=== PATIENT | female | born 1995 | race African-American/Black ===

== ENCOUNTER 2017-01-06 19:02 | Emergency (ER) | payer MEDICAID ==
[~2017-01-06] VITALS: Ht 175.3 cm; Wt 81.2 kg
[~2017-01-06 19:02] MED LIST: FLEXERIL10 MG PO; MOBIC7.5 MG PO; MOTRIN IB200 MG PO; MOTRIN400 MG PO; NOMEDS XX
--- OUTSIDE RECORDS SUMMARY | 2017-01-06 19:13 | External Medical Summary Rpt | CCD ---
Author Author , SHARLA Organization SHARLA Address Unknown Phone Care Team Providers Care Polisher Eyeglass Frames Name Role Phone JESSICA LEONEL, ARNOLD Unavailable Unavailable LEONEL ARNOLD LEONEL, ARNOLD Unavailable Unavailable LEONEL TAY TER, TAY TER Unavailable Unavailable HUNT ALL, HUNT ALL Unavailable Unavailable [facility] Unavailable Unavailable [facility], [facility] MEHTA, MEHTA Unavailable Unavailable MEHTA LIZBETH, MEHTA Unavailable Unavailable LIZBETH MEHTA LIZBETH, MEHTA Unavailable Unavailable LIZBETH [facility] [place]available [place] Unavailable Unavailable [facility] LATOYA VAIBHAV, Unavailable Unavailable LATOYA VAIBHAV LATOYA, JORGE, Unavailable Unavailable LATOYA, JORGE [facility]ISION, Unavailable Unavailable [facility] LYNDSAY DIMAS PA-C Unavailable Unavailable LYNDSAY MERAZ PA-C [facility] Unavailable [place], [facility] [place] [facility] Unavailable [place] [facility] CHARLA ALBERTO MD, Unavailable Unavailable CHARLA RHOADES, YMFANNY Unavailable Unavailable EUG REBECCA CROFT, Unavailable Unavailable REBECCA CROFT [facility] Unavailable Unavailable [place], [facility] Unavailable Unavailable [place], [facility] Unavailable Un[facility] Unavailable [facility] Unavailable Un[facility] Unavailable Unavailable [facility], [facility] Unavailable Unavailable [facility] CALI LESTER, CALI LESTER Unavailable Unavailable CALI LESTER, CALI LESTER Unavailable Unavailable [facility], Unavailable Unavailable [facility] SHIVA [facility] Unavailable Unavailable [facility] Unavailable [facility]available [facility] Unavailable Unavailable [facility], [facility] Unavailable Unavailable SERVICES, [facility] FRANKIE ERAZO, Unavailable Unavailable FRANKIE ERAZO O'MELISSA JESSY, O'MELISSA Unavailable Unavailable JESSY PETTEY JAM, PETTEY Unavailable Unavailable JAM PICKLESIMER JR, Unavailable Unavailable PICKLESIMER JR SCIFRES ANG, SCIFRES Unavailable Unavailable ANG SCIFRES ANG, SCIFRES Unavailable Unavailable ANG SIMEON DON, Unavailable Unavailable SIMEON DON SIMEON DON, Unavailable Unavailable SIMEON DON SIMEON, DON R, Unavailable Unavailable SIMEON, DON R STONE, STONE Unavailable Unavailable STONE MARIYA, STONE MARIYA Unavailable Unavailable JAKE, JAKE Unavailable Unavailable JAKE, JAKE Unavailable Unavailable [facility] Unavailable Unavailable DEPT [facility], [facility] DEPT [facility] Unavailable Unavailable DEPT [facility], [facility] WEHRMAN III NGUYỄN, Unavailable Unavailable [facility] NGUYỄN SILVERIO FARHAD, SILVERIO Unavailable Unavailable FARHAD Purpose Continuity of Care Document - 04-29-2007 through 2016 Problems Code Diagnosis DOS Provider Status E668 OTHER 11-21-2016 JAKE OBESITY N760 ACUTE 11-21-2016 JAKE VAGINITIS R1031 RIGHT LOWER 11-21-2016 JAKE QUADRANT PAIN R350 FREQUENCY 11-06-2016 JAKE OF MICTURITION R351 NOCTURIA 11-06-2016 JAKE [id number] 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 RTN W/O ABNORMAL FIND Z113 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-06-2016 JAKE SCREEN INFECTIONS SEXL MODE TRANSMISSN Z118 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-06-2016 JAKE SCREEN OTHER INFECTIOUS & PARASITIC DZ V55198 MIGRAINE 06-20-2016 [facility] W/O AURA PHYSICIANS NOT INTRACT GROUP W/O STAT MIGRAIN Z7251 HIGH RISK 03-14-2016 [facility] HETEROSEXUA PHYSICIANS L BEHAVIOR GROUP H5213 MYOPIA 02-10-2016 SCIFRES ANG BILATERAL R5383 OTHER 01-19-2016 [facility] FATIGUE PHYSICIANS GROUP I01644 PAIN IN 12-28-2015 [place] [facility] R4740GH UNS INJURY 12-28-2015 [place] RT [facility]OWER [facility]ICAL [facility] INITIAL IMAGING ASS ENCOUNTER N390 URINARY 11-14-2015 [facility] TRACT PHYSICIANS INFECTION GROUP SITE NOT SPECIFIED Z308 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-14-2015 [facility] FOR OTHER PHYSICIANS CONTRACEPTI GROUP VE MANAGEMENT Z111 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-07-2015 [facility] SCREENING PHYSICIANS FOR GROUP RESPIRATORY TUBERCULOSI S R69467 ENCOUNTER 10-19-2015 [facility] INITIAL PHYSICIANS PRESCRIPTIO GROUP N INJECT CONTRACEPT R102 PELVIC AND 09-15-2015 [facility] PERINEAL PHYSICIANS PAIN GROUP B9689 OTH SPEC 09-01-2015 [facility] BACTERIAL PHYSICIANS AGNT CAUSE GROUP DZ CLASSIFIED ELSW N898 OTHER 09-01-2015 [facility] SPECIFIED PHYSICIANS NONINFLAMMA GROUP TORY DISORDERS VAGINA J020 STREPTOCOCC 08-16-2015 [facility] AL PHYSICIANS PHARYNGITIS GROUP R509 FEVER 08-16-2015 [facility] UNSPECIFIED PHYSICIANS GROUP A5400 GONOCOCCAL 04-21-2015 [facility] RY TRACT ILDA UNS A749 CHLAMYDIAL 04-21-2015 [facility] IN[facility]CTION DISTRICT UNSPECIFIED TH DEPT ILDA M15460 ENCOUNTER 12-23-2014 [facility] VENDOR ANALYST EXAM PHYSICIANS GENERAL RTN GROUP W/ABNORMAL FIND 4659 ACUTE URIS 12-09-2014 ARNOLD LEONEL OF UNSPECIFIED SITE 0340 STREPTOCOCC 11-29-2014 [facility] V1359 PERSONAL 10-18-2014 [place] [facility] MUSCULOSKEL ETAL D/O V549 UNSPECIFIED 10-18-2014 [facility] 5999 UNSPECIFIED 10-12-2014 ARNOLD LEONEL DISORDER OF URETHRA&URI NARY TRACT 4619 ACUTE 08-11-2014 ARNOLD LEONEL SINUSITIS, UNSPECIFIED 87442 PAIN IN 06-07-2014 [place] [facility] 3671 MYOPIA 12-15-2013 CALI LESTER V2501 GENERAL 11-02-2013 [facility] LIZBETH COUNSELING PRESCRIPTIO N ORAL CONTRACEPTS V2502 GENERAL 11-02-2013 [facility] LIZBETH CNSL INITIATION OTH CONTRACEPT MEASURES V2509 OT GENERAL 11-02-2013 [facility] LIZBETH CNSL&ADVICE CONTRACEPT MANAGEMENT V692 PROBLEMS 10-20-2013 COMBINED RELATED TO PHYSICIANS HIGH-RISK LA SEXUAL BEHAVIOR V7231 ROUTINE 10-20-2013 MEHT[facility] LIZBETH GYNECOLOGIC AL EXAMINATION 4660 ACUTE 08-18-2013 ARNOLD LEONEL BRONCHITIS V720 EXAMINATION 12-05-2012 CALI LESTER OF EYES AND VISION V741 SCREENING 11-25-2012 [facility] EXAMINATION HIGH FOR SCHOOL HEAL PULMONARY TUBERCULOSI S 37208 PATELLAR 10-13-2012 [facility] V571 OTHER 10-13-2012 [facility] THERAPY INC 462 ACUTE 09-30-2012 JESSICA CASTANEDA PHARYNGITIS 86768 CLOSED 09-24-2012 [place] FRACTURE MEDICAL UNSPECIFIED IMAGING ASS PART LOWER END FEMUR 92608 POST-TRAUMA 07-01-2012 [facility] UNSPECIFIED 850.0 850.0 07-01-2012 [facility] CONCUSSION [facility] W/O [facility] E849.4 E849.4 07-01-2012 [facility] ACCID IN [facility] AREA E885.9 E885.9 FALL 07-01-2012 Rosalio FROM [facility] SLIPPING, Hospital TRIPPING, OR STUMBLING NEC 53644 VARIANTS 05-26-2012 JESSICA CASTANEDA MIGRAINE NEC INTRACT MIGRAINE W/[place] [address] CLOSED 03-31-2012 [facility] [place] [facility] UNSPECIFIED PART OF FEMUR 51430 EFFUSION OF 02-21-2012 [place] [facility] 7823 EDEMA 02-21-2012 [facility] 80432 ASTHMA 01-07-2012 JESSICA CASTANEDA UNSPECIFIED WITH STATUS ASTHMATICUS 38067 ENTHESOPATH 01-01-2012 JESSICA CASTANEDA Y OF UNSPECIFIED SITE 53203 SCOLIOSIS , 10-08-2011 [place] [facility] V700 ROUTINE 10-08-2011 JESSICA CASTANEDA GENERAL MEDICAL EXAM@HEALTH CARE FACL 2662 OTHER 08-21-2011 [facility] S 74138 UNSPECIFIED 08-21-2011 [facility] VULVOVAGINI TIS V2541 SURVEILLANC 08-21-2011 [facility] E PREV HEALTH PRESCRIBED CENTER CONTRACEPT PILL V016 CONTACT 07-31-2011 [facility] WITH OR HEALTH EXPOSURE TO CENTER VENEREAL DISEASES 58686 ESOPHAGEAL 07-26-2011 JESSICA CASTANEDA REFLUX 6262 EXCESSIVE 04-10-2011 [facility] MENSTRUATIO N 8488 OTHER 12-15-2010 SIMEON SPECIFIED DON SITES OF SPRAINS AND STRAINS V2689 OTHER 11-24-2010 [facility] SPECIFIED HEALTH PROCREATIVE CENTER MANAGEMENT V069 NEED PROPH 10-12-2010 [facility] VACCINATION HEALTH W/UNSPEC CENTER COMB VACCINE 7242 LUMBAGO 09-13-2010 [facility] 6253 DYSMENORRHE 08-15-2010 [facility] 45990 REGULAR 08-11-2010 JOLLY ASTIGMATISM VISION V202 ROUTINE 08-08-2010 CA[facility] OR DON CHILD HEALTH CHECK 7245 UNSPECIFIED 07-10-2010 [facility]HE [employer] 8472 LUMBAR 07-10-2010 [facility] SPRAIN AND DON STRAIN 7295 PAIN IN 01-30-2010 [facility] SOFT MIDDLE TISSUES OF SCHOOL LIMB 12126 OTHER 12-28-2009 [facility] DISORDER OF DON COCCYX 8471 THORACIC 07-07-2009 [facility] 4644 CROUP 05-30-2009 INDIRA SIMEON R 1330 SCABIES 12-13-2008 INDIRA SIMEON R 5589 OTH&UNSPEC 12-13-2008 [facility] NONINFECTIO INDIRA R US GASTROENTER ITIS&COLITI S 67758 UNSPECIFIED 03-09-2008 [facility] ARTHROPATHY INC , LOWER LEG 09838 CHEST PAIN 12-04-2007 [place] [facility] 9233 CONTUSION 09-15-2007 [facility] OF FINGER INDIRA [place]ahan Allergies, Adverse Reactions, Alerts Type Allergy to substance Adverse Reaction to Substance Substance Reaction Severity NO KNOWN ALLERGIES Unknown Unknown Medications Na ND Rx Da Fi Fi Am Da Di Ph RX Ph St me C No te ll ll ou ys ag ar # ys at rm s nt no ma ic us Or Da si cy ia de te s n re d ES 68 08 10 30 30 00 HO Ac CI 00 -3 -0 .0 00 ME ti TA 10 1- 6- 00 06 TO ve LO 19 20 20 09 WN OR 60 17 17 34 AM 3 66 PH AR 10 MA CY MG OF TA BL CY ET NT HI AN A BU 00 03 04 30 5 00 HO Ac TA 59 -2 -2 .0 00 ME ti LB 13 9- 8- 00 04 TO ve -A 36 20 20 02 WN CE 90 17 17 20 TA 5 89 PH WA AR N- MA CA CY FF OF 50 -3 CY 25 NT -4 HI 0 AN A ON 00 03 04 30 10 00 HO Ac DA 37 -2 -2 .0 00 ME ti NS 87 9- 8- 00 06 TO ve ET 73 20 20 08 WN RO 49 17 17 41 N 3 72 PH OD AR T MA 8 CY MG OF TA BL CY ET NT HI AN A ME 00 09 09 0 [address] Ac TH 78 -2 -[address] 22 EP ti YL 15 3- 3- 00 SI 89 HE ve OR 02 20 20 DE NS ED 20 11 11 NI 7 PH DO SO AR N LO MA R NE CY 4 OF MG CY DO NT SE HI PK AN A IB 53 09 09 1 [address] Ac UP 74 -2 -[address] 22 EP ti RO 60 3- 3- 00 SI 90 HE ve FE 46 20 20 DE NS N 40 11 11 40 5 PH DO 0 AR N MG MA R CY TA BL OF ET CY NT HI AN A CY 00 06 06 0 15 5 EA 23 WE Ac CL 37 -2 -[address] 04 HR ti OB 80 2- 2- 00 SI 90 MA ve EN 75 20 20 DE N ZA 11 11 11 II OR 0 PH I IN AR WI E MA LL 10 CY IA M MG OF E TA CY BL NT ET HI AN A OR 00 04 04 [address] Ac ED 60 -1 -[address] 17 EP ti NI 35 8- 8- 00 SI 02 HE ve SO 33 20 20 DE NS NE 71 11 11 5 5 PH DO AR N MG MA R CY TA BL OF ET CY NT HI AN A AZ 00 03 03 0 6. [address] Ac IT 09 -0 -[address] 68 EP ti HR 37 8- 8- 0 SI 67 HE ve OM 14 20 20 DE NS YC 61 10 10 IN 8 PH DO AR N 25 MA R 0 CY MG OF TA BL CY ET NT HI AN A ME 00 03 03 [address] Ac TH 78 -0 -[address] 68 EP ti YL 15 8- 8- 00 SI 68 HE ve OR 02 20 20 DE NS ED 20 10 10 NI 7 PH DO SO AR N LO MA R NE CY 4 OF MG CY DO NT SE HI PK AN A 60 03 03 0 [address] Ac 25 -0 -[address] 68 EP ti 80 8- 8- 00 SI 69 HE ve 23 20 20 0 DE NS 91 10 10 6 PH DO AR N MA R CY OF CY NT HI AN A 00 09 10 00 [address] Ac 40 -2 -[address] 35 EP ti 62 1- 8- 00 SI 80 HE ve 04 20 20 DE NS 11 09 09 0 PH DO AR N MA R CY OF CY NT HI AN A PE 45 09 10 [address] Ac RM 80 -2 -[address] 35 EP ti ET 20 1- 8- 00 SI 79 HE ve HR 26 20 20 DE NS IN 93 09 09 7 PH DO 5% AR N MA R CR CY EA M OF CY NT HI AN A 00 05 06 00 2. 2 EA 98 No Ac 09 -1 -[address] 05 t ti 39 9- 5- 0 SI 41 Av ve 10 20 20 DE ai 72 08 08 la 9 PH bl AR e MA CY OF CY NT HI AN A 60 02 03 00 18 5 EA 96 No Ac 25 -0 -[address] 66 t ti 80 5- 6- 00 SI 64 Av ve 23 20 20 0 DE ai 91 08 08 la 6 PH bl AR e MA CY OF CY NT HI AN A AM 00 02 03 00 30 10 EA 96 No Ac OX 78 -0 -[address] 66 t ti IC 12 5- 6- 00 SI 63 Av ve IL 02 20 20 DE ai LI 00 08 08 la N [address] bl 25 AR e 0 MA MG CY CA OF PS CY UL NT E HI AN A Immunization Name Date Rout CVX Reac Dose Comm Prov Is Faci e tion ent ider Refu lity Give sed n MCV4 07-2 114 Meni LAURENCE No LAURENCE 1-20 may SERENE SERENE IGLESIAS 11 occu CO CO CWY s HEAL HEAL CONJ vacc TH TH ine CENT CENT VACC admi ER ER nist GRPS ered ; ACYW form -135 ulat IM ion USE not spec ifie d. MCV4 07-2 136 Meni LAURENCE No LAURENCE 1-20 may SERENE SERENE IGLESIAS 11 occu CO CO CWY s HEAL HEAL CONJ vacc TH TH ine CENT CENT VACC admi ER ER nist GRPS ered ; ACYW form -135 ulat IM ion USE not spec ifie d. Vital Signs 07-01-2012 19:45 Name Value Interpretat Reference Comment ion Range Body 98.5 [degF] Temperature BP 69 mm[Hg] Diastolic BP Systolic 131 mm[Hg] Heart 87 /min Rate/Pulse O2% 100 % Respiratory 18 /min Rate 07-01-2012 18:48 Name Value Interpretat Reference Comment ion Range BP 71 mm[Hg] Diastolic BP Systolic 124 mm[Hg] Heart 83 /min Rate/Pulse O2% 100 % Respiratory 18 /min Rate Results Labs Lab Lab Date Result Refere Interp Status Commen Order Detail nces retati t Range on Herpes simplex virus identified in Unspecified specimen by Organism specific culture (09-27-2016 16:00) Herpes 09-27- NO complet simplex 017 HERPES ed virus 16:00 VIRUS identif ISOLATE ied in D Unspeci fied specime n by Shell vial culture Herpes simplex virus identified in Unspecified specimen by Organism specific culture (09-27-2016 16:00) COLLECT RILEY complet OR 017 ed 16:00 ETHNICI BIRACIA complet TY 017 L/NON-H ed 16:00 ISPANIC SPECIME SWAB complet N 017 ed SOURCE 16:00 GESTATI N/A complet ON 017 ed 16:00 DATE OF UNKNOWN complet 017 ed SYMPTOM 16:00 S CHART N/A complet NUMBER 017 ed 16:00 SYMPTOM LESIONS complet S 017 ed 16:00 Herpes Pending complet simplex 017 ed virus 16:00 identif ied in Unspeci fied specime n by Shell vial culture CHLAMYDIA AND GONORRHEA TESTING (08-14-2016 13:00) Chlamyd 08-14-2 NEGATIV complet ia 017 E ed trachom 13:00 atis rRNA [Presen ce] in Unspeci fied specime n by Probe & target amplifi cation method Neisser 23-2 NEGATIV complet ia 017 E ed gonorrh 13:00 oeae rRNA [Presen ce] in Unspeci fied specime n by Probe & target amplifi cation method CHLAMYDIA AND GONORRHEA TESTING (08-14-2016 13:00) COLLECT 08-14- RILEY complet OR 017 ed 13:00 ETHNICI --2 UNKNOWN complet TY 017 ed 13:00 KIT 08-14-2 1131-2 complet EXPIRAT 017 017 ed ION 13:00 DATE SYMPTOM 08-14- NO complet S 017 ed 13:00 REASON 08-14-2 REVISIT complet FOR 017 /ANNUAL ed REQUEST 13:00 FAMILY PLANNIN G VISIT SPECIME 08-14- URINE complet N 017 ed SOURCE 13:00 PREGNAN --2 NO complet T 017 ed 13:00 CHART N/A complet NUMBER 017 ed 13:00 Chlamyd 08-14-2 Pending complet ia 017 ed trachom 13:00 atis rRNA [Presen ce] in Unspeci fied specime n by Probe & target amplifi cation method Neisser 08-14-2 Pending complet ia 017 ed gonorrh 13:00 oeae rRNA [Presen ce] in Unspeci fied specime n by Probe & target amplifi cation method CHLAMYDIA AND GONORRHEA TESTING (08-21-2011 14:00) Chlamyd NEGATIV complet ia 012 E ed trachom 14:00 atis rRNA [Presen ce] in Unspeci fied specime n by Probe & target amplifi cation method Neisser 08-20-2 NEGATIV complet ia 012 E ed gonorrh 14:00 oeae rRNA [Presen ce] in Unspeci fied specime n by Probe & target amplifi cation method CHLAMYDIA AND GONORRHEA TESTING (08-21-2011 14:00) COLLECT NA complet OR 012 ed 14:00 ETHNICI BLACK, complet TY 012 NON-HIS ed 14:00 PANIC KIT 20 complet EXPIRAT 012 12 ed ION 14:00 DATE SYMPTOM NO complet S 012 ed 14:00 REASON VOLUNTE complet FOR 012 ER/MEDI ed REQUEST 14:00 GERMAINE PROBLEM SPECIME FEMALE complet N 012 ENDOCER ed SOURCE 14:00 VICAL PREGNAN NO complet T 012 ed 14:00 CHART NA complet NUMBER 012 ed 14:00 Chlamyd Pending complet ia 012 ed trachom 14:00 atis rRNA [Presen ce] in Unspeci fied specime n by Probe & target amplifi cation method Neisser Pending complet ia 012 ed gonorrh 14:00 oeae rRNA [Presen ce] in Unspeci fied specime n by Probe & target amplifi cation method Procedures Procedure DOS Code Location Performer Comment SMR PRIM 59069 JAKE JAKE SRC WET 7 [facility] NFCT AGT SMR PRIM 31289 JAKE JAKE [facility] WET 7 [facility] NFCT AGT IADNA 61488 [facility] ER JR TRACHOMAT IS AMPLIFIED PROBE TQ URINALYSI 39842 JAKE JAKE S 7 MICROSCOP IC ONLY IADNA 63995 [facility] NEISSERIA [facility] ER JR GONORRHOE AE AMPLIFIED PROBE TQ OPHTH 06024 SCIFRES SCIFRES MEDICAL 6 ANG ANG XM&EVAL COMPRHNSV ESTAB PT 1/> SCRATCH V2760 SCIFRES SCIFRES RESISTANT 6 ANG ANG COATING PER LENS LENS V2784 SCIFRES SCIFRES POLYCARBO 6 ANG ANG MARYAM OR EQUAL ANY INDEX PER LENS FRAMES V2020 SCIFRES SCIFRES PURCHASES 6 ANG ANG 1 VISN V2103 SCIFRES SCIFRES PLANO 6 ANG ANG TO+/-4.00 D SPHER 0.12-2.00 D CYL EA FITTING 12196 SCIFRES MovetisFRES SPECTACLE 6 ANG ANG S XCPT APHAKIA MONOFOCAL IRON 27708 [facility] BINDING 6 [facility] CAPACITY INC INC BLOOD 63457 [facility] ZHUON COUNT 6 [facility] COMPLETE INC INC AUTO&AUTO DIFRNTL WBC CYANOCOBA 18887 [facility] SANTAM[facility] RIZWANA 6 [facility] VITAMIN INC INC B-[address] [place] [address] [facility] FERRITIN 6 [facility] [place] [address] [facility]ANTAM[facility] FOLIC 6 [facility] [place] [address] [facility]ANTAM[facility] IRON 6 [facility] INC INC RADIOLOGI 20017 [place] [facility] 6 MEDICAL EXAMINATI IMAGING ON KNEE 3 ASS VIEWS CULTURE 28863 [facility] S[facility]AM[facility] BACTERIAL 6 [facility] INC INC QUANTTATI VE COLONY COUNT URINE REMOVAL 79400 [facility] NON-BIODE 6 PHYSICIAN LIZBETH GRADABLE S GROUP DRUG DELIVERY IMPLANT URNLS DIP 90543 [facility] 6 PHYSICIAN LIZBETH STICK/TAB S GROUP LET RGNT NON-AUTO W/O MICRSCP SKIN TEST 98769 [facility] FRYMAN 6 PHYSICIAN EUG TUBERCULO S GROUP SIS INTRADERM AL ETONOGEST J7307 [facility] REL 6 PHYSICIAN LIZBETH CNTRACPT S GROUP IMPL SYS INCL IMPL & SPL INSJ 63274 [facility] NON-BIODE 6 PHYSICIAN LIZBETH GRADABLE S GROUP DRUG DELIVERY IMPLANT URINE 03554 [facility] 6 PHYSICIAN LIZBETH TEST S GROUP VISUAL COLOR CMPRSN METHS SMR PRIM 85504 [facility] SANTAMARIA SRC WET 6 [facility] INC NFCT AGT IAADIADOO 37265 [facility] LYNDSAY 6 PHYSICIAN STONE STREPTOCO S GROUP PA-C MARIYA CCUS GROUP A IAADIADOO 87171 [facility] LYNDSAY 6 PHYSICIAN STONE INFLUENZA S GROUP PA-C MARIYA IADNA 91838 [facility] NEISSERIA 6 [facility] GONORRHOE AE AMPLIFIED PROBE TQ IADNA 65972 [facility] CHLAMYDIA 6 [facility] TRACHOMAT IS AMPLIFIED PROBE TQ IADNA 56918 [facility] TH DEPT TH DEPT TRACHOMAT ILDA ILDA IS AMPLIFIED PROBE TQ CONTRACEP A4267 [facility] TIVE [facility] SUPPLY TH DEPT HLTH DEPT CONDOM ILDA ILDA MALE EACH IADNA 18952 [facility] DEPT TH DEPT GONORRHOE ILDA ILDA AE AMPLIFIED PROBE TQ IADNA 30314 [facility] SANTAMARIA CHLAMYDIA 5 [facility] INC INC TRACHOMAT IS AMPLIFIED PROBE TQ URINE 19934 [facility] 5 PHYSICIAN LIZBETH TEST S GROUP VISUAL COLOR CMPRSN METHS IADNA 89250 [facility] SANTAMARIA NEISSERIA 5 [facility] INC INC GONORRHOE AE AMPLIFIED PROBE TQ OPHTH 59059 [facility] 4 XM&EVAL COMPRHNSV ESTAB PT 1/> FITTING 61945 [facility] SPECTACLE 4 S XCPT APHAKIA MONOFOCAL LENS V2784 KARELY BATISTA POLYCARBO 4 MARYAM OR EQUAL ANY INDEX PER LENS 1 VISN V2103 KARELY CALI LESTER PLANO 4 TO+/-4.00 D SPHER 0.12-2.00 D CYL EA SCRATCH V2760 KARELY BATISTA RESISTANT 4 COATING PER LENS FRAMES V2020 KARELY BATIST[facility] PURCHASES 4 ANTIBODY 52533 COMBINED COMBINED CHLAMYDIA 4 PHYSICIAN PHYSICIAN S LA S LA CUL BACT 12175 COMBINED COMBINED XCPT 4 PHYSICIAN PHYSICIAN URINE S LA S LA BLOOD/STO OL AEROBIC ISOL SPHERE V2100 KARELY BATISTA SINGLE 3 VISION PLANO +/- 4.00 PER LENS OPHTH 94817 KARELY BATIST[facility] MEDICAL 3 XM&EVAL COMPRHNSV ESTAB PT 1/> 1 VISN V2103 KARELY BATISTA PLANO 3 TO+/-4.00 D SPHER 0.12-2.00 D CYL EA FRAMES V2020 KARELY BATISTA PURCHASES 3 DETERMINA 27604 KARELY BATISTA TION 3 REFRACTIV E STATE THERAPEUT 55878 [facility] SANTAMARIA IC PX 1/> 3 [facility] EACH 15 MIN EXERCISES THERAPEUT 84700 ROSALIO SANTAMARIA IC PX 1/> 3 [facility] INC EACH 15 MIN EXERCISES PHYSICAL 16619 ROSALIO SANTAMARIA THERAPY 3 [facility] [place] [address] [place] JT LOWER 3 MEDICAL VAIBHAV EXTREM IMAGING W/O ASS CONTRAST MATRL RADIOLOGI 67921 [place]AL SILVERIO C 3 [place] FARHAD EXAMINATI ORTHOPAED ON KNEE ICS PLC 1/2 VIEWS THERAPEUT 34667 ROSALIO SANTAMARIA IC PX 1/> 3 [facility] INC EACH 15 MIN EXERCISES THERAPEUT 38369 ROSALIO SANTAMARIA IC PX 1/> 3 [facility] INC EACH 15 MIN EXERCISES APPLICATI 16799 ROSALIO SANTAMARIA ON 3 [facility] INC 1/> AREAS HOT/COLD PACKS APPLICATI 17910 ROSALIO SANTAMARIA ON 3 [facility] INC 1/> AREAS HOT/COLD PACKS THERAPEUT 56789 ROSALIO SANTAMARIA IC PX 1/> 3 [facility] INC EACH 15 MIN EXERCISES PHYSICAL 57837 ROSALIO SANTAMARIA THERAPY 3 [facility] EVALUATIO INC INC N RADIOLOGI 85504 [facility] SILVERIO [facility] [place] EXAMINATI ORTHOPAED ON KNEE IC 1/2 [place] [address] ROSALIO SANTAMARIA JT LOWER 2 [facility] EXTREM INC INC W/O CONTRAST MATRL RADIOLOGI 12197 [facility] [place] [place] C 2 MEDICAL VAIBHAV EXAMINATI IMAGING ON KNEE ASS 1/2 VIEWS RADEX 38888 ROSALIO SANTAMARIA SPINE 2 [facility] SCOLIOS INC INC STUDY W/SUPINE & ERECT STUDY IADNA 23848 ROSALIO SANTAMARIA NEISSERIA 2 [facility] GONORRHOE AE AMPLIFIED PROBE TQ IADNA 45411 ROSALIO SANTAMARIA CHLAMYDIA 2 [facility] TRACHOMAT IS AMPLIFIED PROBE TQ URINE 89911 ROSALIO SANTAMARIA 1 [facility] CENTER VISUAL COLOR CMPRSN METHS CONTRACEP S4993 ROSALIO SANTAMARIA TIVE 1 [facility] [employer] [employer] [place] [facility] CENTER CONTROL MCV4 44664 ROSALIO SANTAMARIA MENACWY 1 [facility] CONJ VACC CENTER CENTER GRPS [id number] IM USE IM ADM 98885 ROSALIO SANTAMARIA PRQ ID 1 [facility] [facility]IM [facility] CENTER NJXS 1 VACCINE RADEX 21029 ROSALIO SANTAMARIA SPINE 1 [facility] INC AL MINIMUM 4 VIEWS CONTRACEP [id number] ROSALIO SANTAMARIA TIVE 1 [facility] HEALTH PILLS FOR CENTER CENTER CONTROL URINE 12678 ROSALIO SANTAMARIA 1 [facility] HEALTH TEST CENTER CENTER VISUAL COLOR CMPRSN METHS CONTRACEP A4267 ROSALIO SANTAMARIA TIVE 1 [facility] HEALTH SUPPLY CENTER CENTER CONDOM MALE EACH SPHERE V2100 JOLLY HAHN SINGLE 1 VISION ANG VISION PLANO +/- 4.00 PER LENS FITTING 03235 JOLLY HAHN SPECTACLE 1 VISION ANG S XCPT APHAKIA MONOFOCAL FRAMES V2020 JOLLY HAHN PURCHASES 1 VISION ANG OPHTH 78786 JOLLY HAHN MEDICAL 1 VISION ANG XM&EVAL COMPRE NEW PT 1/> VST URNLS DIP 69003 CAILIN SIMEON 1 DON DON STICK/TAB LET RGNT NON-AUTO W/O MICRSCP URNLS DIP 43901 [facility] ZHUON 0 [facility] STICK/TAB INC INC LET REAGENT AUTO MICROSCOP Y URINE 40127 ROSAL[facility] SANTAMARIA 0 [facility] TEST INC INC VISUAL COLOR CMPRSN METHS RADIOLOGI 66310 [place] Antonio KLEIN 8 MEDICAL JORGE EXAMINATI IMAGING ON KNEE ASSOCIATE 1/2 VIEWS S RADIOLOGI 87844 ROSALIO SANTAMARIA C 8 [facility] EXAMINATI INC INC ON KNEE 3 VIEWS RADIOLOGI 91417 [place] Antonio ERAZO EXAM 8 MEDICAL FRANKIE P CHEST 2 IMAGING VIEWS ASSOCIATE FRONTAL&L S ATERAL IM ADM 70553 [facility] ROSALIO PRQ ID 8 [facility] HEALTH SUBQ/IM CENTRAL CENTER NJXS 1 BANK ACCT VACCINE RADEX 40911 CAILIN SIMEON FINGR 8 DON R DON R MINIMUM 2 VIEWS Encounters Encounter Start End Date Code Location Performer Type Date OFFICE 69979 JAKE JAKE OUTPATIEN 7 7 T VISIT 15 MINUTES OFFICE 52875 JAKE JAKE OUTPATIEN 7 7 T NEW 30 MINUTES OFFICE 67836 [facility] STONE OUTPATIEN 7 7 PHYSICIAN T VISIT S GROUP 25 MINUTES OFFICE 67437 [facility] MEHTA OUTPATIEN 6 6 PHYSICIAN T VISIT S GROUP 15 MINUTES HOSPITAL ROSALIO - 6 6 [facility] OUTPATI[facility] INC T OFFICE 39215 [facility] STONE MARIYA OUTPATIEN 6 6 PHYSICIAN T VISIT 5 S GROUP MINUTES OFFICE 22388 [facility] OUTPATIEN 6 6 PHYSICIAN T VISIT S GROUP 15 MINUTES HOSPITAL ROSALIO - 6 6 [facility] INC T OFFICE 51690 [facility] MEHTA OUTPATIEN 6 6 PHYSICIAN LIZBETH T VISIT S GROUP 15 MINUTES OFFICE 92089 [facility] UMANA OUTPATIEN 6 6 PHYSICIAN STONE T VISIT S GROUP PATri MERAZ 15 MINUTES [facility] ROSALIO - 6 6 [facility] OUTPATIEN INC T OFFICE 94697 [facility] UMANA OUTPATIEN 6 6 PHYSICIAN STONE T NEW 30 S GROUP PATri MERAZ MINUTES OFFICE 66835 [facility] DE[facility] DEPT 10 [facility] ROSALIO - 5 5 [facility] OUTPATIEN INC T PERIODIC 87097 [facility] TYSON PREVENTIV 5 5 PHYSICIAN LIZBETH E MED EST S GROUP PATIENT 18-39 YRS OFFICE 45294 JESSICA LOPEZ OUTPATIEN 5 5 LEONEL LEONEL T VISIT 15 MINUTES OFFICE 57480 ROSALIO RODRIGUEZ OUTPATIEN [address] MINUTES OFFICE 10711 SOP[facility]IA SHANNON OUTPATIEN 5 5 MEDICAL COLE T VISIT SERV 15 FOUNDATIO MINUTES N OFFICE 36051 JESSICA LOPEZ OUTPATIEN 5 5 LEONEL LEONEL T VISIT 15 MINUTES OFFICE 23994 JESSICA LOPEZ OUTPATIEN 5 5 LEONEL LEONEL T VISIT 15 MINUTES OFFICE 64144 [facility] SHANNON OUTPATIEN 5 5 MEDICAL COLE T VISIT SERV 15 FOUNDATIO MINUTES N OFFICE 80145 JESSICA BOND 4 4 LEONEL LEONEL T VISIT 15 MINUTES OFFICE 70206 [facility] MEHTA OUTPATIEN 4 4 LIZBETH LIZBETH T VISIT 15 MINUTES INITIAL 22641 MEHTA TYSON PREVENTIV 4 4 LIZBETH LIZBETH E MEDICINE NEW PT AGE 12-17 YR OFFICE 13933 JESSICA LOPEZ OUTESTELLE 4 4 LEONEL LEONEL T VISIT 15 MINUTES OFFICE 77291 ROSALIO SANTAMARIA OUTESTELLE 3 3 [facility] MIN[facility]ES [facility] OFFICE 33861 JESSICA BOND 3 3 LEONEL LEONEL T VISIT 15 MINUTES HOSPITAL [facility] - 3 3 [facility] OUTPATI[facility] INC T OFFICE 35613 JESSICA BOND 3 3 LEONEL LEONEL T VISIT 15 MINUTES HOSPITAL [facility]AL[facility] - 3 3 [facility] OUTPATI[facility] INC T OFFICE 83559 DIPTI SAWYER OUTPATIEN 3 3 [place] [facility] T VISIT ORTHOPAED [facility] MINUTES Emergency RADHA ALBERTO MD (ER) 3 18:15 3 19:46 [facility] OFFICE 94329 JESSICA BOND 3 3 LEONEL LEONEL T VISIT 15 MINUTES EMERGENCY 56204 GHAZALA ALBERTO 3 3 EMERGENCY [facility] SERVICES T VISIT HIGH/URGE NT SEVERITY OFFICE 63861 JESSICA BOND 3 3 LEONEL LEONEL T VISIT 15 MINUTES OFFICE 69396 JESSICA BOND 3 3 LEONEL LEONEL T VISIT 15 MINUTES OFFICE 84562 DIPTI SAWYER OUTPATIEN 3 3 [place] T VISIT ORTHOPAED [facility] MINUTES OFFICE 30418 JESSICA LOPEZ OUTPATIEN 3 3 LEONEL LEONEL T VISIT 15 MINUTES HOSPITAL [facility] - 3 3 [facility] T OFFICE 16143 [facility] OUTPATI[facility] 3 3 ALCIRA FARHAD T VISIT ORTHOPAED 15 IC MINUTES OFFICE 54718 [facility] [place] 2 2 [place] VISIT ORTHOPAED 15 [facility] MINUTES [facility]OSPITAL [facility] - 2 2 [facility] T OFFICE 25719 [facility] CONSULTAT 2 2 [place] I[place] ORTHOPAED NEW/ESTAB [facility] PATIENT 40 MIN OFFICE 73592 [facility] PETTEY OUTPATIEN 2 2 PHYSICIAN JAM T VISIT S GROUP 10 MINUTES OFFICE 29181 [facility] PETTEY OUTPATIEN 2 2 PHYSICIAN JAM T NEW 20 S GROUP MINUTES HOSPITAL ROSALIO - 2 2 [facility] OUTPATIEN INC T OFFICE 01037 JESSICA LOPEZ OUTPATIEN 2 2 LEONEL LEONEL T VISIT 15 MINUTES OFFICE 34302 JESSICA LOPEZ OUTPATIEN 2 2 LEONEL LEONEL T VISIT 15 MINUTES OFFICE 13637 JESSICA LOPEZ OUTPATIEN 2 2 LEONEL LEONEL T VISIT 15 MINUTES HOSPITAL [facility]AL[facility] - 2 2 [facility] OUTPATIEN INC T OFFICE 64024 JESSICA LOPEZ OUTPATIEN 2 2 LEONEL LEONEL T VISIT 40 MINUTES OFFICE 77544 ROSALIO SANTAMARIA OUTPATIEN 2 2 [facility] HEALTH T VISIT CENTER CENTER 10 MINUTES OFFICE 33199 JESSICA LOPEZ OUTPATIEN 2 2 LEONEL LEONEL T NEW 30 MINUTES OFFICE 18512 ROSALIO SANTAMARIA OUTPATIEN 1 1 [facility] HEALTH T VISIT CENTER CENTER 25 MINUTES OFFICE 01169 CAILIN SIMEON OUTPATIEN 1 1 DON DON T VISIT 15 MINUTES OFFICE 68921 ROSALIO SANTAMARIA OUTPATIEN 1 1 [facility] HEALTH T VISIT CENTER CENTER 10 MINUTES EMERGENCY 86095 GHAZALA MAYORGA 1 1 EMERGENCY [facility] DEPARTMEN SERVICES T VISIT HIGH/URGE NT SEVERITY EMERGENCY 02925 ROSALIO 1 1 [facility] DEPARTMEN INC T VISIT LOW/MODER SEVERITY HOSPITAL [facility] - 1 1 [facility] OUTPATIEN INC T OFFICE 90307 ROSALIO SANTAMARIA OUTPATIEN 1 1 [facility] HEALTH T VISIT CENTER CENTER 25 MINUTES OFFICE 79203 ROSALIO SANTAMARIA OUTPATIEN 1 1 [facility] HE[facility] T VISIT CENTER CENTER 25 MINUTES PERIODIC 66809 CAILIN SIMEON PREVENTIV 1 1 DON DON E MED EST PATIENT OFFICE 30326 CAILIN SIMEON OUTPATIEN 1 1 DON DON T VISIT 15 MINUTES OFFICE 56255 ROSALIO SANTAMARIA OUTPATIEN 1 1 [facility] 10 MINUTES OFFICE 29370 ROSALIO SANTAMARIA OUTPATIEN 0 0 [facility] 10 MINUTES OFFICE 11640 CAILIN SIMEON OUTPATIEN 0 0 DON DON T VISIT 15 MINUTES PERIODIC 50525 CAILIN SIMEON, PREVENTIV 0 0 DON R DON R E MED EST PATIENT 18YRS EMERGENCY 56670 GHAZALA CROFT, 0 0 EMERGENCY [facility] DEPARTMEN SERVICES T VISIT HIGH/URGE ASSOCIATE NT S SEVERITY HOSPITAL [facility] - 0 0 [facility] OUTPATIEN INC T EMERGENCY 77724 [facility] 0 0 [facility] DEPARTMEN INC T VISIT LOW/MODER SEVERITY OFFICE 17482 CAILIN SIMEON OUTPATILUIS 0 0 DON R DON R T VISIT 15 MINUTES OFFICE 18528 CAILIN SIMEON OUTPATIEN 0 0 DON R DON R T VISIT 15 MINUTES OFFICE 75018 CAILIN SIMEON OUTPATIEN 9 9 DON R DON R T VISIT 15 MINUTES PERIODIC 16072 CAILIN SIMEON PREVENTIV 9 9 DON R DON R E MED EST PATIENT 5-11YRS EMERGENCY 74166 [facility] 8 8 [facility] DEPARTMEN INC T VISIT LOW/MODER SEVERITY [facility]OSPITAL [facility] - 8 8 [facility] T OFFICE 89309 [facility] OUTPATIEN 8 8 [facility] T VISIT [facility] 10 BANK ACCT MINUTES OFFICE 78782 CAILIN SIMEON OUTPATIEN 8 8 DON R DON R T VISIT 15 MINUTES OFFICE 27608 [facility] OUTPATIEN 8 8 [facility] CO HE[facility] T NEW 10 CENTRAL CENTER MINUTES BANK ACCT PERIODIC 92934 CAILIN SIMEON PREVENTIV 8 8 DON R DON R E MED EST PATIENT 5-11YRS OFFICE 50516 CAILIN SIMEON OUTPATIEN 8 8 DON R DON R T VISIT 15 MINUTES
--- OUTSIDE RECORDS SUMMARY | 2017-01-06 19:13 | External Medical Summary Rpt | CCD ---
Author Author , SHARLA Organization SHARLA Address Unknown Phone Care Team Providers Care Advertising Internship Name Role Phone JESSICA LEONEL, ARNOLD Unavailable Unavailable LEONEL ARNOLD LEONEL, ARNOLD Unavailable Unavailable LEONEL TAY TER, TAY TER Unavailable Unavailable HUNT ALL, HUNT ALL Unavailable Unavailable [facility] Unavailable Unavailable [facility], [facility] MEHTA, MEHTA Unavailable Unavailable MEHTA LIZBETH, MEHTA Unavailable Unavailable LIZBETH MEHTA LIZBETH, MEHTA Unavailable Unavailable LIZBETH [facility] Unavailable Unavailable [facility] LATOYA VAIBHAV, Unavailable Unavailable LATOYA VAIBHAV LATOYA, JORGE, Unavailable Unavailable LATOYA, JORGE [facility], Unavailable Unavailable [facility] LYNDSAY DIMAS PA-C Unavailable Unavailable LYNDSAY MERAZ PA-C [facility] [place]available [place], [facility] [place] [facility] [place] [facility] CHARLA ALBERTO MD, Unavailable Unavailable CHARLA RHOADES, YMFANNY Unavailable Unavailable EUG REBECCA CROFT, Unavailable Unavailable REBECCA CROFT [facility] Unavailable Unavailable [place], [facility] Un[facility] [place] Un[facility] Un[facility] Un[facility] Un[facility] Unavailable [facility] Unavailable Unavailable [facility] CALI LESTER, CALI LESTER Unavailable Unavailable CALI LESTER, CALI LESTER Unavailable Unavailable [facility], Unavailable Unavailable [facility] SHIVA CUI Unavailable Unavailable [facility] Unavailable Unavailable [facility], [facility] Unavailable Unavailable SERVICES, [facility] FRANKIE ERAZO, Unavailable Unavailable FRANKIE [...] JAKE Unavailable Unavailable JAKE, JAKE Unavailable Unavailable [facility] Unavailable Unavailable DEPT [facility] DE[facility] Unavailable Unavailable DEPT [facility] DE[facility] WEHRMAN III NGUYỄN, Unavailable Unavailable WEHRMAN III NGUYỄN SILVERIO FARHAD, SILVERIO Unavailable Unavailable FARHAD Purpose Continuity of Care Document - 04-29-2007 through 2016 Problems Code Diagnosis DOS Provider Status E668 OTHER 11-21-2016 JAKE OBESITY N760 ACUTE 11-21-2016 JAKE VAGINITIS R1031 RIGHT LOWER 11-21-2016 JAKE QUADRANT PAIN R350 FREQUENCY 11-06-2016 JAKE OF MICTURITION R351 NOCTURIA 11-06-2016 JAKE [id number] 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-06-2016 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 EXAM GENERAL RTN W/O ABNORMAL FIND Z113 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-06-2016 JAKE SCREEN INFECTIONS SEXL MODE TRANSMISSN Z118 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-06-2016 JAKE SCREEN OTHER INFECTIOUS & PARASITIC DZ M84530 MIGRAINE 06-20-2016 [facility] W/O AURA PHYSICIANS NOT INTRACT GROUP W/O STAT MIGRAIN Z7251 HIGH RISK 03-14-2016 [facility] HETEROSEXUA PHYSICIANS L BEHAVIOR GROUP H5213 MYOPIA 02-10-2016 SCIFRES ANG BILATERAL R5383 OTHER 01-19-2016 [facility] FATIGUE PHYSICIANS GROUP M12270 PAIN IN 12-28-2015 [facility] O5405JO UNS INJURY 12-28-2015 [facility] RT LOWER MEDICAL LEG INITIAL IMAGING ASS ENCOUNTER N390 URINARY 11-14-2015 [facility] TRACT PHYSICIANS INFECTION GROUP SITE NOT SPECIFIED Z308 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-14-2015 [facility] FOR OTHER PHYSICIANS CONTRACEPTI GROUP VE MANAGEMENT Z111 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-07-2015 [facility] SCREENING PHYSICIANS FOR GROUP RESPIRATORY TUBERCULOSI S A76292 ENCOUNTER 10-19-2015 [facility] INITIAL PHYSICIANS PRESCRIPTIO GROUP N INJECT CONTRACEPT R102 PELVIC AND 09-15-2015 [facility] PERINEAL PHYSICIANS PAIN GROUP B9689 OTH SPEC 09-01-2015 [facility] BACTERIAL PHYSICIANS AGNT CAUSE GROUP DZ CLASSIFIED ELSW N898 OTHER 09-01-2015 [facility] SPECIFIED PHYSICIANS NONINFLAMMA GROUP TORY DISORDERS VAGINA J020 STREPTOCOCC 08-16-2015 [facility] AL PHYSICIANS PHARYNGITIS GROUP R509 FEVER 08-16-2015 [facility] UNSPECIFIED PHYSICIANS GROUP A5400 GONOCOCCAL 04-21-2015 [facility] DEPT RY TRACT ILDA UNS A749 CHLAMYDIAL 04-21-2015 [facility] INFECTION DISTRICT UNSPECIFIED TH DEPT ILDA H06622 ENCOUNTER 12-23-2014 [facility] FINANCIAL MANAGER EXAM PHYSICIANS GENERAL RTN GROUP W/ABNORMAL FIND 4659 ACUTE URIS 12-09-2014 ARNOLD LEONEL OF UNSPECIFIED SITE 0340 STREPTOCOCC 11-29-2014 [facility] AL [facility] V1359 PERSONAL 10-18-2014 [place] [facility] MUSCULOSKEL ETAL D/O V549 UNSPECIFIED 10-18-2014 [facility] 5999 UNSPECIFIED 10-12-2014 ARNOLD LEONEL DISORDER OF URETHRA&URI NARY TRACT 4619 ACUTE 08-11-2014 ARNOLD LEONEL SINUSITIS, UNSPECIFIED 73883 PAIN IN 06-07-2014 [place] [facility], SERV [...] HIGH FOR SCHOOL HEAL PULMONARY TUBERCULOSI S 72814 PATELLAR 10-13-2012 [facility] V571 OTHER 10-13-2012 [facility] THERAPY INC 462 ACUTE 09-30-2012 JESSICA CASTANEDA PHARYNGITIS 38378 CLOSED 09-24-2012 [facility] F[facility] MEDICAL UNSPECIFIED IMAGING ASS PART LOWER END FEMUR 17493 POST-TRAUMA 07-01-2012 GHAZALA [facility] HEADACHE SERVICES UNSPECIFIED 850.0 850.0 07-01-2012 [facility] CONCUSSION [facility] W/O [facility] E849.4 E849.4 07-01-2012 Rosalio ACCID IN [facility] AREA E885.9 E885.9 FALL 07-01-2012 Rosalio FROM [facility] SLIPPING, Hospital TRIPPING, OR STUMBLING NEC 97380 VARIANTS 05-26-2012 JESSICA CASTANEDA MIGRAINE NEC INTRACT MIGRAINE W/[place] 0[address] CLOSED 03-31-2012 [facility] UNSPECIFIED PART OF FEMUR 07758 EFFUSION OF 02-21-2012 [facility] 7823 EDEMA 02-21-2012 [facility] 61840 ASTHMA 01-07-2012 JESSICA CASTANEDA UNSPECIFIED WITH STATUS ASTHMATICUS 38693 ENTHESOPATH 01-01-2012 JESSICA CASTANEDA Y OF UNSPECIFIED SITE 21171 SCOLIOSIS , 10-08-2011 [facility] V700 ROUTINE 10-08-2011 JESSICA CASTANEDA GENERAL MEDICAL EXAM@HEALTH CARE FACL 2662 OTHER 08-21-2011 [facility] DEFICIENCIE C[facility] S 30389 UNSPECIFIED 08-21-2011 [facility] VULVOVAGINI TIS V2541 SURVEILLANC 08-21-2011 [facility] E PREV HEALTH PRESCRIBED CENTER CONTRACEPT PILL V016 CONTACT 07-31-2011 [facility] WITH OR HEALTH EXPOSURE TO CENTER VENEREAL DISEASES 41878 ESOPHAGEAL 07-26-2011 JESSICA CASTANEDA REFLUX 6262 EXCESSIVE 04-10-2011 [facility] MENSTRUATIO N 8488 OTHER 12-15-2010 SIMEON SPECIFIED DON SITES OF SPRAINS AND STRAINS V2689 OTHER 11-24-2010 [facility] SPECIFIED HEALTH PROCREATIVE CENTER MANAGEMENT V069 NEED PROPH 10-12-2010 [facility] VACCINATION HEALTH W/UNSPEC CENTER COMB VACCINE 7242 LUMBAGO 09-13-2010 [facility] 6253 DYSMENORRHE 08-15-2010 [facility] CENTER 08639 REGULAR 08-11-2010 JOLLY ASTIGMATISM VISION V202 ROUTINE 08-08-2010 CAILIN OR DON CHILD HEALTH CHECK 7245 UNSPECIFIED 07-10-2010 [facility] BACK[facility]HE [employer] 8472 LUMBAR 07-10-2010 CAILIN SPRAIN AND DON STRAIN 7295 PAIN IN 01-30-2010 [facility] SOFT MIDDLE TISSUES OF SCHOOL LIMB 94348 OTHER 12-28-2009 CAIL[facility] DISORDER OF DON COCCYX 8471 THORACIC 07-07-2009 [facility] 4644 CROUP 05-30-2009 INDIRA SIMEON R 1330 SCABIES 12-13-2008 INDIRA SIMEON R 5589 OTH&UNSPEC 12-13-2008 CAILIN NONINFECTIO INDIRA R US GASTROENTER ITIS&COLITI S 94434 UNSPECIFIED 03-09-2008 [facility] ARTHROPATHY INC , LOWER LEG 88995 CHEST PAIN 12-04-2007 [facility] 9233 CONTUSION 09-15-2007 [...] ve LO 19 20 20 09 WN DE 60 17 17 34 AM 3 66 [...] 3- 3- 00 SI 89 HE ve DE 02 20 20 DE NS ED 20 [...] DE N ZA 11 11 11 II DE 0 PH I IN AR WI E MA LL 10 CY IA M MG OF E TA CY BL NT ET HI AN A DE 00 04 04 0 21 6 EA [...] 8- 8- 00 SI 68 HE ve DE 02 20 20 DE NS ED 20 [...] DOS Code Location Performer Comment SMR PRIM 75719 JAKE JAKE SRC WET 7 [facility] NF[facility] AGT SMR PRIM 33861 JAKE JAKE SRC WET 7 [facility] NF[facility] AGT IADNA 76136 [facility] CHLAM[facility] ER JR TRACHOMAT IS AMPLIFIED PROBE TQ URINALYSI 09664 JAKE JAKE S 7 MICROSCOP IC ONLY IADNA 10806 [facility] NEISSERIA 7 LLC ER JR GONORRHOE AE AMPLIFIED PROBE TQ OPHTH 59842 SCIFRES SCIFRES MEDICAL 6 ANG ANG XM&EVAL COMPRHNSV ESTAB PT 1/> SCRATCH V2760 SCIFRES SCIFRES RESISTANT 6 ANG ANG COATING PER LENS LENS V2784 SCIFRES SCIFRES POLYCARBO 6 ANG ANG MARYAM OR EQUAL ANY INDEX PER LENS FRAMES V2020 SCIFRES SCIFRES PURCHASES 6 ANG ANG 1 VISN V2103 SCIFRES SCIFRES PLANO 6 ANG ANG TO+/-4.00 D SPHER 0.12-2.00 D CYL EA FITTING 27502 SCIFRES WeVideo.ItFRES SPECTACLE 6 ANG ANG S XCPT APHAKIA MONOFOCAL IRON 54360 [facility] S[facility]AM[facility] BINDING 6 [facility] CAPACITY INC INC BLOOD 05984 [facility] ZHUON COUNT 6 [facility] COMPLETE INC INC AUTO&AUTO DIFRNTL WBC CYANOCOBA 87865 [facility] RIZWANA 6 [facility] VITAMIN INC INC B-12 [place] [address] [facility] S[facility] FERRITIN 6 [facility] [place] [address] [facility] FOLIC 6 [facility] [address] [facility] S[facility] IRON 6 [facility] INC INC RADIOLOGI 63884 [facility] HUNT ALL C 6 MEDICAL EXAMINATI IMAGING ON KNEE 3 ASS VIEWS CULTURE 20383 [facility] BACTERIAL 6 [facility] INC INC QUANTTATI VE COLONY COUNT URINE REMOVAL 06943 [facility] [place] NON-BIODE 6 PHYSICIAN LIZBETH GRADABLE S GROUP DRUG DELIVERY IMPLANT URNLS DIP 23665 [facility] [place] 6 PHYSICIAN LIZBETH STICK/TAB S GROUP LET RGNT NON-AUTO W/O MICRSCP SKIN TEST 61149 [facility] FRYMAN 6 PHYSICIAN EUG TUBERCULO S GROUP SIS INTRADERM AL ETONOGEST J7307 [facility] [place] REL 6 PHYSICIAN LIZBETH CNTRACPT S GROUP IMPL SYS INCL IMPL & SPL INSJ 40291 [facility] [place] NON-BIODE 6 PHYSICIAN LIZBETH GRADABLE S GROUP DRUG DELIVERY IMPLANT URINE 80809 [facility] [place] 6 PHYSICIAN LIZBETH TEST S GROUP VISUAL COLOR CMPRSN METHS SMR PRIM 20977 [facility] SANTAMARIA SRC WET 6 [facility] INC INC NFCT AGT IAADIADOO 91355 [facility] LYNDSAY 6 PHYSICIAN STONE STREPTOCO S GROUP PA-C MARIYA CCUS GROUP A IAADIADOO 99500 [facility] LYNDSAY 6 PHYSICIAN STONE INFLUENZA S GROUP PA-C MARIYA IADNA 18540 [facility] NEISSERIA 6 [facility] GONORRHOE AE AMPLIFIED PROBE TQ IADNA 22969 [facility] CHLAMYDIA 6 [facility] TRACHOMAT IS AMPLIFIED PROBE TQ IADNA 49334 [facility] TH DEPT TH DEPT TRACHOMAT ILDA ILDA IS AMPLIFIED PROBE TQ CONTRACEP A4267 [facility] TIVE [facility] DISTRICT SUPPLY TH DEPT HLTH DEPT CONDOM ILDA ILDA MALE EACH IADNA 32656 [facility] NEISS[facility]IA [address] [facility] DEPT TH DEPT GONORRHOE ILDA ILDA AE AMPLIFIED PROBE TQ IADNA 27948 [facility] SANTAMARIA CHLAMYDIA 5 [facility] INC INC TRACHOMAT IS AMPLIFIED PROBE TQ URINE 50720 [facility] T[place]ON 5 PHYSICIAN LIZBETH TEST S GROUP VISUAL COLOR CMPRSN METHS IADNA 10577 [facility] SANTAMARIA NEISSERIA 5 [facility] INC INC GONORRHOE AE AMPLIFIED PROBE TQ OPHTH 40977 [facility] MEDICAL 4 XM&EVAL COMPRHNSV ESTAB PT 1/> FITTING 21545 [facility] SPECTACLE 4 S XCPT APHAKIA MONOFOCAL LENS V2784 KARELY BATISTA POLYCARBO 4 MARYAM OR EQUAL ANY INDEX PER LENS 1 VISN V2103 KARELY CALI LESTER PLANO 4 TO+/-4.00 D SPHER 0.12-2.00 D CYL EA SCRATCH V2760 KARELY BATISTA RESISTANT 4 COATING PER LENS FRAMES V2020 KARELY BATISTA PURCHASES 4 ANTIBODY 76473 COMBINED COMBINED CHLAMYDIA 4 PHYSICIAN PHYSICIAN S LA S LA CUL BACT 86084 COMBINED COMBINED XCPT 4 PHYSICIAN PHYSICIAN URINE S LA S LA BLOOD/STO OL AEROBIC ISOL SPHERE V2100 KARELY BATISTA SINGLE 3 VISION PLANO +/- 4.00 PER LENS OPHTH 13078 KARELY BATISTA MEDICAL 3 XM&EVAL COMPRHNSV ESTAB PT 1/> 1 VISN V2103 KARELY BATISTA PLANO 3 TO+/-4.00 D SPHER 0.12-2.00 D CYL EA FRAMES V2020 KARELY BATISTA PURCHASES 3 DETERMINA 41337 KARELY BATISTA TION 3 REFRACTIV E STATE THERAPEUT 37019 [facility] SANTAMARIA IC PX 1/> 3 [facility] AREAS INC INC EACH 15 MIN EXERCISES THERAPEUT 61533 [facility] SANTAMARIA IC PX 1/> 3 [facility] AREAS INC INC EACH 15 MIN EXERCISES PHYSICAL 58913 [facility] SANTAMARIA THERAPY 3 [facility] EVALUATIO INC INC N MRI ANY 76143 [place] LATOY[facility] JT LOWER 3 MEDICAL VAIBHAV EXTREM IMAGING W/O ASS CONTRAST MATRL RADIOLOGI 22537 [facility] SILVERIO C 3 [place] FARHAD EXAMINATI ORTHOPAED ON KNEE ICS PLC 1/2 VIEWS THERAPEUT 38035 [facility] SANTAMARIA IC PX 1/> 3 [facility] AREAS INC INC EACH 15 MIN EXERCISES THERAPEUT 59182 [facility] SANTAMARIA IC PX 1/> 3 [facility] AREAS INC INC EACH 15 MIN EXERCISES APPLICATI 66525 [facility] SANTAMARIA ON 3 [facility] MODALITY INC INC 1/> AREAS HOT/COLD PACKS APPLICATI 13442 [facility] SANTAMARIA ON 3 [facility] MODALITY INC INC 1/> AREAS HOT/COLD PACKS THERAPEUT 35171 [facility] SANTAMARIA IC PX 1/> 3 [facility] AREAS INC INC EACH 15 MIN EXERCISES PHYSICAL 91600 [facility] SANTAMARIA THERAPY 3 [facility] EVALUATIO INC INC N RADIOLOGI 51863 [facility]IO C 3 [facility] FAR[facility] EXAMINATI ORTHOPAED ON KNEE IC 1/2 VIEWS MRI ANY 46038 [facility] SANTAMARIA JT LOWER 2 [facility] EXTREM INC INC W/O CONTRAST MATRL RADIOLOGI 10683 [facility] LATOYA C 2 MEDICAL VAIBHAV EXAMINATI IMAGING ON KNEE ASS 1/2 VIEWS RADEX 26617 [facility] SANTAMARIA SPINE 2 [facility] SCOLIOS INC INC STUDY W/SUPINE & ERECT STUDY IADNA 60777 [facility] SANTAMARIA NEISSERIA 2 [facility] CENTER GONORRHOE AE AMPLIFIED PROBE TQ IADNA 37299 [facility] SANTAMARIA CHLAMYDIA 2 [facility] CENTER TRACHOMAT IS AMPLIFIED PROBE TQ URINE 95408 [facility] SANTAMARIA 1 [facility] TEST CENTER CENTER VISUAL COLOR CMPRSN METHS CONTRACEP S4993 [facility] SANTAMARIA TIVE 1 [place] [employer] [place] [facility] CENTER CONTROL MCV4 13877 [facility] SANTAMARIA MENACWY 1 [facility] CONJ VACC CENTER CENTER GRPS ACYW-135 IM USE IM ADM 63633 [facility] SANTAMARIA PRQ ID 1 [facility] HEALTH SUBQ/IM CENTER CENTER NJXS 1 VACCINE RADEX 85919 [facility] SANTAMARIA SPINE 1 [facility] LUMBOSACR INC INC AL MINIMUM 4 VIEWS CONTRACEP S4993 [facility] SANTAMARIA TIVE 1 [facility] PILLS FOR CENTER CENTER CONTROL URINE 62101 ROSALIO SANTAMARIA 1 [facility] CENTER CENTER VISUAL COLOR CMPRSN METHS CONTRACEP A4267 [facility] SANTAMARIA TIVE 1 [facility] SUPPLY CENTER CENTER CONDOM MALE EACH SPHERE V2100 JOLLY HAHN SINGLE 1 VISION ANG VISION PLANO +/- 4.00 PER LENS FITTING 57369 JOLLY HAHN SPECTACLE 1 VISION ANG S XCPT APHAKIA MONOFOCAL FRAMES V2020 JOLLY HAHN PURCHASES 1 VISION ANG OPHTH 38831 JOLLY HAHN MEDICAL 1 VISION ANG XM&EVAL COMPRE NEW PT 1/> VST URNLS DIP 75123 CAILIN SIMEON 1 DON DON STICK/TAB LET RGNT NON-AUTO W/O MICRSCP URNLS DIP 60311 [facility] ZHUON 0 [facility] STICK/TAB INC INC LET REAGENT AUTO MICROSCOP Y URINE 97091 [facility] SANTAMARIA 0 [facility] TEST INC INC VISUAL COLOR CMPRSN METHS RADIOLOGI 87680 [place] Antonio KLEIN 8 MEDICAL JORGE EXAMINATI IMAGING ON KNEE ASSOCIATE 1/2 VIEWS S RADIOLOGI 47958 [facility] SANTAMARIA C 8 [facility] EXAMINATI INC INC ON KNEE 3 VIEWS RADIOLOGI 54008 [place] Antonio ERAZO EXAM 8 MEDICAL FRANKIE P CHEST 2 IMAGING VIEWS ASSOCIATE FRONTAL&L S ATERAL IM ADM 42746 [facility] ROSALIO PRQ ID 8 [facility] HEALTH SUBQ/IM CENTRAL CENTER NJXS 1 BANK ACCT VACCINE RADEX 89101 CAILIN SIMEON FINGR 8 DON R DON R MINIMUM 2 VIEWS Encounters Encounter Start End Date Code Location Performer Type Date OFFICE 08698 JAKE JAKE OUTPATIEN 7 7 T VISIT 15 MINUTES OFFICE 00919 JAKE JAKE OUTPATIEN 7 7 T NEW 30 MINUTES OFFICE 52332 [facility] STONE OUTPATIEN 7 7 PHYSICIAN T VISIT S GROUP 25 MINUTES OFFICE 46208 [facility] MEHTA OUTPATIEN 6 6 PHYSICIAN T VISIT S GROUP 15 MINUTES HOSPITAL ROSALIO - 6 6 [facility] OUTPATIEN INC T OFFICE 17080 [facility] STONE MARIYA OUTPATIEN 6 6 PHYSICIAN T VISIT 5 S GROUP MINUTES OFFICE 66648 [facility] OUTPATIEN 6 6 PHYSICIAN T VISIT S GROUP 15 MINUTES HOSPITAL ROSALIO - 6 6 [facility] OUTPATIEN INC T OFFICE 05659 [facility] MEHTA OUTPATIEN 6 6 PHYSICIAN LIZBETH T VISIT S GROUP 15 MINUTES OFFICE 05684 [facility] UMANA OUTPATIEN 6 6 PHYSICIAN STONE T VISIT S GROUP PATri MERAZ 15 MINUTES [facility] ROSALIO - 6 6 [facility] OUTPATIEN INC T OFFICE 60106 [facility] UMANA OUTPATIEN 6 6 PHYSICIAN STONE T NEW 30 S GROUP PATri MERAZ MINUTES OFFICE 21781 [facility] T [facility] DEPT [facility] DEPT 10 [facility] ROSALIO - 5 5 [facility] OUTPATIEN INC T PERIODIC 31630 [facility] [place] PREVENTIV 5 5 PHYSICIAN LIZBETH E MED EST S GROUP PATIENT 18-39 YRS OFFICE 11011 JESSICA LOPEZ OUTPATIEN 5 5 LEONEL LEONEL T VISIT 15 MINUTES OFFICE 80282 [facility] RODRIGUEZ OUTPATIEN [address] MINUTES OFFICE 99907 SOPHIA SHANNON OUTPATIEN 5 5 MEDICAL COLE T VISIT SERV 15 FOUNDATIO MINUTES N OFFICE 36950 JESSICA LOPEZ OUTPATIEN 5 5 LEONEL LEONEL T VISIT 15 MINUTES OFFICE 92367 JESSICA LOPEZ OUTPATIEN 5 5 LEONEL LEONEL T VISIT 15 MINUTES OFFICE 06281 SOP[facility]IA SHANNON OUTPATIEN 5 5 MEDICAL COLE T VISIT SERV 15 FOUNDATIO MINUTES N OFFICE 25465 JESSICA BOND 4 4 LEONEL LEONEL T VISIT 15 MINUTES OFFICE 02809 [place] MEHTA OUTPATIEN 4 4 LIZBETH LIZBETH T VISIT 15 MINUTES INITIAL 25921 MEHTA [place] PREVENTIV 4 4 LIZBETH LIZBETH E MEDICINE NEW PT AGE 12-17 YR OFFICE 18599 JESSICA LOPEZ OUTESTELLE 4 4 LEONEL LEONEL T VISIT 15 MINUTES OFFICE 63095 [facility] SANTAMARIA OUTESTELLE 3 3 [facility] T VISIT 5 [facility] MINUTES [facility] HEAL OFFICE 84352 JESSICA BOND 3 3 LEONEL LEONEL T VISIT 15 MINUTES HOSPITAL [facility] - 3 3 [facility] OUTPATIEN INC T OFFICE 97815 JESSICA BOND 3 3 LEONEL LEONEL T VISIT 15 MINUTES HOSPITAL ROSALIO - 3 3 [facility] OUTPATIEN INC T OFFICE 76463 DIPTI SAWYER OUTPATIEN 3 3 [place] T VISIT ORTHOPAED 15 [facility] MINUTES Emergency RADHA ALBERTO MD (ER) 3 18:15 3 19:46 [facility] OFFICE 82953 JESSICA BOND 3 3 LEONEL LEONEL T VISIT 15 MINUTES EMERGENCY 66046 GHAZALA ALBERTO 3 3 EMERGENCY [facility] SERVICES T VISIT HIGH/URGE NT SEVERITY OFFICE 28342 JESSICA BOND 3 3 LEONEL LEONEL T VISIT 15 MINUTES OFFICE 60584 JESSICA BOND 3 3 LEONEL LEONEL T VISIT 15 MINUTES OFFICE 25974 DIPTI SAWYER OUTPATIEN 3 3 [place] [facility] VISIT ORTHOPAED 15 [facility] MINUTES OFFICE 15246 JESSICA LOPEZ OUTPATIEN 3 3 LEONEL LEONEL T VISIT 15 MINUTES [facility] T OFFICE 41283 [facility] 3 3 ALCIRA FARHAD T VISIT ORTHOPAED 15 IC MINUTES OFFICE 83036 [facility] [place] [facility] VISIT ORTHOPAED 15 [facility] MINUTES [facility] - [facility] 2 [facility] T OFFICE 19635 [facility] CONSULTAT 2 2 [place] ION ORTHOPAED NEW/ESTAB [facility] PATIENT 40 MIN OFFICE 66081 [facility]TEY OUTPATIEN 2 2 PHYSICIAN JAM T VISIT S GROUP 10 MINUTES OFFICE 46272 [facility] OUTPATIEN 2 2 PHYSICIAN JAM T NEW 20 S GROUP MINUTES [facility]OSP[facility] - 2 2 [facility] T OFFICE 40623 JESSICA LOPEZ OUTPATIEN 2 2 LEONEL LEONEL T VISIT 15 MINUTES OFFICE 26931 JESSICA LOPEZ OUTPATIEN 2 2 LEONEL LEONEL T VISIT 15 MINUTES OFFICE 75208 JESSICA LOPEZ OUTPATIEN 2 2 LEONEL LEONEL T VISIT 15 MINUTES [facility]OSP[facility] 2 [facility] T OFFICE 85688 JESSICA LOPEZ OUTPATIEN 2 2 LEONEL LEONEL T VISIT 40 MINUTES OFFICE 02476 [facility] SANTAMARIA OUTPATIEN 2 2 [facility] 10 MINUTES OFFICE 64506 JESSICA LOPEZ OUTPATIEN 2 2 LEONEL LEONEL T NEW 30 MINUTES OFFICE 98278 [facility] SANTAMARIA OUTPATIEN 1 1 [facility] 25 MINUTES OFFICE 04912 CAILIN SIMEON OUTPATIEN 1 1 DON DON T VISIT 15 MINUTES OFFICE 97389 [facility] SANTAMARIA OUTPATIEN 1 1 [facility] 10 MINUTES EMERGENCY 66506 GHAZALA MAYORGA [address] [facility] DEPARTMEN SERVICES T VISIT HIGH/URGE NT SEVERITY EMERGENCY 04011 [facility] 1 1 [facility] T VISIT LOW/MODER SEVERITY [facility]OSP[facility] - [facility] 1 [facility] T OFFICE 63613 [facility] SANTAMARIA OUTPATIEN 1 1 [facility] 25 MINUTES OFFICE 03715 [facility] SANTAMARIA OUTPATIEN 1 1 [facility] 25 MINUTES PERIODIC 47940 CAILIN SIMEON PREVENTIV 1 1 DON DON E MED EST PATIENT OFFICE 33905 CAIL[facility] SIMEON OUTPATIEN 1 1 DON DON T VISIT 15 MINUTES OFFICE 49525 [facility] SANTAMARIA OUTPATIEN 1 1 [facility] 10 MINUTES OFFICE 43889 [facility] SANTAMARIA OUTPATIEN 0 0 [facility] 10 MINUTES OFFICE 68728 CAILIN SIMEON OUTPATIEN 0 0 DON DON T VISIT 15 MINUTES PERIODIC 85286 CAILIN SIMEON, PREVENTIV 0 0 DON R DON R E MED EST PATIENT 18YRS EMERGENCY 60454 GHAZALA CROFT, 0 0 EMERGENCY [facility] DEPARTMEN SERVICES T VISIT HIGH/URGE ASSOCIATE NT S SEVERITY [facility]OSP[facility] 0 [facility] INC T EMERGENCY 79464 [facility] 0 0 [facility] INC T VISIT LOW/MODER SEVERITY OFFICE 41952 CAILIN SIMEON OUTPATILUIS 0 0 DON R DON R T VISIT 15 MINUTES OFFICE 90922 [facility] OUTPATIEN 0 0 DON R DON R T VISIT 15 MINUTES OFFICE [id number] [facility] OUTPATIEN 9 9 DON R DON R T VISIT 15 MINUTES PERIODIC 94110 [facility] PREVENTIV 9 9 DON R DON R E MED EST PATIENT 5-11YRS EMERGENCY [id number] [facility] T VISIT LOW/MODER SEVERITY [facility] - [facility] T OFFICE [id number] [facility] 10 BANK ACCT MINUTES OFFICE 78549 [facility] OUTPATIEN 8 8 DON R DON R T VISIT 15 MINUTES OFFICE 79957 [facility] 8 8 [facility] T [facility] MINUTES BANK ACCT PERIODIC [id number] [facility] PREVENTIV 8 8 DON R DON R E MED EST PATIENT 5-11YRS OFFICE 98634 [facility] OUTPATIEN 8 8 DON R DON R T VISIT 15 MINUTES
--- OUTSIDE RECORDS SUMMARY | 2017-01-06 19:15 | External Medical Summary Rpt | CCD ---
Author Author , SHARLA Mckeon SHARLA Address Unknown Phone [email or web address] The[employer] Care Team Providers Care Master At Arms Name Role Phone JESSICA LEONEL, JESSICA Unavailable Unavailable LEONEL ARNMARIELY LEONEL, ARNOLD Unavailable Unavailable LEONEL TAY TER, TAY TER Unavailable Unavailable HUNT ALL, HUNT ALL Unavailable Unavailable [facility] Unavailable Unavailable [facility], [facility] MEHTA, MEHTA Unavailable Unavailable MEHTA LIZBETH, MEHTA Unavailable Unavailable LIZBETH MEHTA LIZBETH, MEHTA Unavailable Unavailable LIZBETH [facility]available [facility] Unavailable [facility]available [facility], [facility] LATOYA VAIBHAV, Unavailable Unavailable LATOYA VAIBHAV LATOYABLAISEJORGE, Unavailable Unavailable LATOYA, JORGE [facility], Unavailable Unavailable [facility] LYNDSAY DIMAS PA-C Unavailable Unavailable LYNDSAY MERAZ PA-C [facility] [place]available [place] [facility] [place] [facility] [facility] [facility] [place] FRYMAN EUG, FRYMAN Unavailable Unavailable REBECCA GRAY, Unavailable Unavailable REBECCA CRO[facility] Unavailable Unavailable [place], [facility] Unavailable Unavailable [place], [facility] Unavailable Unavailable [facility] Unavailable Unavailable [facility] Unavailable [facility]available [facility] Unavailable [facility], [facility] Unavailable Unavailable INC, [facility] Unavailable Unavailable HOSPITAL, [facility] CALI LESTER, CALI LESTER Unavailable Unavailable KARELY LESTER, CALI LESTER Unavailable Unavailable [facility], Unavailable Unavailable [facility] SHIVA SORIANO Unavailable Unavailable [facility] Unavailable Unavailable [facility], [facility] Unavailable Unavailable SERVICES, [facility] FRANKIE ERAZO, Unavailable Unavailable KACEY, FRANKIE P O'MELISSA JESSY, O'MELISSA Unavailable Unavailable JESSY PETTEY [...] JAKE Unavailable Unavailable JAKE, JAKE Unavailable Unavailable [facility] Unavailable Unavailable DEPT [facility] Unavailable Unavailable DEPT 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 W/O ABNORMAL FIND Z113 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-06-2016 JAKE SCREEN INFECTIONS SEXL MODE TRANSMISSN Z118 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-06-2016 JAKE SCREEN OTHER INFECTIOUS & PARASITIC DZ X02132 MIGRAINE 06-20-2016 [facility] W/O AURA PHYSICIANS NOT INTRACT GROUP W/O STAT MIGRAIN Z7251 HIGH RISK 03-14-2016 [facility] HETEROSEXUA PHYSICIANS L BEHAVIOR GROUP H5213 MYOPIA 02-10-2016 SCIFRES ANG BILATERAL R5383 OTHER 01-19-2016 [facility] FATIGUE PHYSICIANS GROUP L48478 PAIN IN 12-28-2015 [facility] U4989UW UNS INJURY 12-28-2015 [place] RT LOWER MEDICAL LEG INITIAL IMAGING ASS ENCOUNTER N390 URINARY 11-14-2015 [facility] TRACT PHYSICIANS INFECTION GROUP SITE NOT SPECIFIED Z308 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-14-2015 [facility] FOR OTHER PHYSICIANS CONTRACEPTI GROUP VE MANAGEMENT Z111 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-07-2015 [facility] SCREENING PHYSICIANS FOR GROUP RESPIRATORY TUBERCULOSI S S69348 ENCOUNTER 10-19-2015 [facility] INITIAL PHYSICIANS PRESCRIPTIO GROUP N INJECT CONTRACEPT R102 PELVIC AND 09-15-2015 [facility] PERINEAL PHYSICIANS PAIN GROUP B9689 OTH SPEC 09-01-2015 [facility] BACTERIAL PHYSICIANS AGNT CAUSE GROUP DZ CLASSIFIED ELSW N898 OTHER 09-01-2015 [facility] SPECIFIED PHYSICIANS NONINFLAMMA GROUP TORY DISORDERS VAGINA J020 STREPTOCOCC 08-16-2015 [facility] AL PHYSICIANS PHARYNGITIS GROUP R509 FEVER 08-16-2015 [facility] UNSPECIFIED PHYSICIANS GROUP A5400 GONOCOCCAL 04-21-2015 [facility] INF LOWER [facility] GEN[facility] RY TRACT ILDA UNS A749 CHLAMYDIAL 04-21-2015 [facility] INFECTION DISTRICT UNSPECIFIED [facility] ILDA F50119 ENCOUNTER 12-23-2014 [facility] 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 GENERAL RTN GROUP W/ABNORMAL FIND 4659 ACUTE URIS 12-09-2014 ARNOLD LEONEL OF UNSPECIFIED SITE 0340 STREPTOCOCC 11-29-2014 [facility] V1359 PERSONAL 10-18-2014 [facility] MEDICAL HISTORY OF [email or web address] [facility] ETAL D/O V549 UNSPECIFIED 10-18-2014 [facility] ORTHOPEDIC SERV [facility] 5999 UNSPECIFIED 10-12-2014 ARNOLD LEONEL DISORDER OF URETHRA&URI NARY TRACT 4619 ACUTE 08-11-2014 ARNOLD LEONEL SINUSITIS, UNSPECIFIED 45591 PAIN IN 06-07-2014 [facility]INT, SERV [facility] 3671 MYOPIA 12-15-2013 CALI LESTER V2501 GENERAL 11-02-2013 [facility] LIZBETH COUNSELING PRESCRIPTIO N ORAL CONTRACEPTS V2502 GENERAL 11-02-2013 [facility]HT[facility] LIZBETH CNSL INITIATION OT CONTRACEPT MEASURES V2509 OT GENERAL 11-02-2013 MEHTA LIZBETH CNSL&ADVICE CONTRACEPT MANAGEMENT V692 PROBLEMS 10-20-2013 COMBINED RELATED TO PHYSICIANS HIGH-RISK LA SEXUAL BEHAVIOR V7231 ROUTINE 10-20-2013 MEHTA LIZBETH GYNECOLOGIC AL EXAMINATION 4660 ACUTE 08-18-2013 ARNOLD LEONEL BRONCHITIS V720 EXAMINATION 12-05-2012 CALI LESTER OF EYES AND VISION V741 SCREENING 11-25-2012 [facility] CO EXAMINATION HIGH FOR SCHOOL HEAL PULMONARY TUBERCULOSI S 26468 PATELLAR 10-13-2012 [facility] V571 OTHER 10-13-2012 [facility]ICAL [facility] THERAPY INC 462 ACUTE 09-30-2012 ARNOLD LEONEL PHARYNGITIS 51140 CLOSED 09-24-2012 [facility] FRACTURE MEDICAL UNSPECIFIED IMAGING ASS PART LOWER END FEMUR 32164 POST-TRAUMA 07-01-2012 [facility] EMERGENCY HEADACHE SERVICES UNSPECIFIED 62820 VARIANTS 05-26-2012 JESSICA CASTANEDA MIGRAINE NEC INTRACT MIGRAINE W/[place] [address] CLOSED 03-31-2012 [facility] FRACTURE OF [place] [facility] UNSPECIFIED PART OF FEMUR 95422 EFFUSION OF 02-21-2012 [place] L[facility]G MEDICAL JOINT IMAGING ASS 7823 EDEMA 02-21-2012 [facility] 42183 ASTHMA 01-07-2012 JESSICA CASTANEDA UNSPECIFIED WITH STATUS ASTHMATICUS 49856 ENTHESOPATH 01-01-2012 JESSICA CASTANEDA Y OF UNSPECIFIED SITE 77511 SCOLIOSIS , 10-08-2011 [facility] [facility] V700 ROUTINE 10-08-2011 JESSICA CASTANEDA GENERAL MEDICAL EXAM@HEALTH CARE FACL 2662 OTHER 08-21-2011 [facility] DEFICIENCIE C[facility] S 24712 UNSPECIFIED 08-21-2011 [facility] VULVOVAGINI TIS V2541 SURVEILLANC 08-21-2011 [facility] E PREV HEALTH PRESCRIBED CENTER CONTRACEPT PILL V016 CONTACT 07-31-2011 [facility] WITH OR HEALTH EXPOSURE TO CENTER VENEREAL DISEASES 16942 ESOPHAGEAL 07-26-2011 JESSICA CASTANEDA REFLUX 6262 EXCESSIVE 04-10-2011 [facility] OR [facility] MENSTRUATIO N 8488 OTHER 12-15-2010 SIMEON SPECIFIED DON SITES OF SPRAINS AND STRAINS V2689 OTHER 11-24-2010 [facility] SPECIFIED HEALTH PROCREATIVE CENTER MANAGEMENT V069 NEED PROPH 10-12-2010 [facility] VACCINATION HEALTH W/UNSPEC CENTER COMB VACCINE 7242 LUMBAGO 09-13-2010 [facility] 6253 DYSMENORRHE 08-15-2010 [facility] 31995 REGULAR 08-11-2010 JOLLY ASTIGMATISM VISION V202 ROUTINE 08-08-2010 [facility] OR DON CHILD HEALTH CHECK 7245 UNSPECIFIED 07-10-2010 [facility] BACKACHE [employer] 8472 LUMBAR 07-10-2010 [facility] SPRAIN AND DON STRAIN 7295 PAIN IN 01-30-2010 [facility] SOFT MIDDLE TISSUES OF SCHOOL LIMB 64757 OTHER 12-28-2009 [facility] DISORDER OF DON COCCYX 8471 THORACIC 07-07-2009 [facility] 4644 CROUP 05-30-2009 SIMEONINDIRA PERSON R 1330 SCABIES 12-13-2008 SIMEONINDIRA PERSON R 5589 OTH&UNSPEC 12-13-2008 CAILIN NONINFECTIO INDIRA R US GASTROENTER ITIS&COLITI S 49230 UNSPECIFIED 03-09-2008 [facility] ARTHROPATHY INC , LOWER LEG 11811 CHEST PAIN 12-04-2007 [place] UNSPECIFIED [facility] 9233 CONTUSION 09-15-2007 MYRON SIMEON FINGER INDIRA R Medications Na ND Rx Da Fi Fi [...] ve LO 19 20 20 09 WN SD 60 17 17 34 AM 3 66 PH AR 10 MA CY MG OF TA BL CY ET NT HI AN A BU 00 03 04 30 5 00 HO Ac TA 59 -2 -2 .0 00 ME ti LB 13 9- 8- 00 04 TO ve -A 36 20 20 02 WN CE 90 17 17 20 TA 5 89 PH AK AR N- MA CA CY FF OF [...] 3- 3- 00 SI 89 HE ve SD 02 20 20 DE NS ED 20 [...] DE N ZA 11 11 11 II SD 0 PH I IN AR WI E MA LL 10 CY IA M MG OF E TA CY BL NT ET HI AN A SD 00 04 04 0 21 6 EA [...] 8- 8- 00 SI 68 HE ve SD 02 20 20 DE NS ED 20 [...] CY UL NT E HI AN A 60 02 03 00 18 5 EA 96 No Ac 25 -0 -[address] 66 t ti 80 5- 6- 00 SI 64 Av ve 23 20 20 0 DE ai 91 08 08 la 6 PH bl AR e MA CY OF CY NT HI AN A Immunization Name Date Rout CVX Reac Dose Comm Prov Is Faci e tion ent ider Refu lity Give sed n MCV4 07- 114 Meni LAURENCE No LAURENCE 1-20 may [...] IM ion USE not spec ifie d. Procedures Procedure DOS Code Location Performer Comment SMR PRIM 72328 JAKE JAKE SRC WET 7 [place] NF[facility] AGT SMR PRIM 49143 JAKE JAKE SRC WET 7 [facility] NFCT AGT URINALYSI 76432 JAKE JAKE S 7 MICROSCOP IC ONLY IADNA 18966 [facility] ER JR GONORRHOE AE AMPLIFIED PROBE TQ IADNA 42628 [facility] CHLAMYD[facility] ER JR TRACHOMAT IS AMPLIFIED PROBE TQ 1 VISN V2103 SCIFRES SCIFRES PLANO 6 ANG ANG TO+/-4.00 D SPHER 0.12-2.00 D CYL EA SCRATCH V2760 SCIFRES SCIFRES RESISTANT 6 ANG ANG COATING PER LENS LENS V2784 SCIFRES SCIFRES POLYCARBO 6 ANG ANG MARYAM OR EQUAL ANY INDEX PER LENS OPHTH 10947 SCIFRES SCIFRES MEDICAL 6 ANG ANG XM&EVAL COMPRHNSV ESTAB PT > FITTING 48316 SCIFRES SCIFRES SPECTACLE 6 ANG ANG S XCPT APHAKIA MONOFOCAL FRAMES V2020 SCIFRES SCIFRES PURCHASES 6 ANG ANG IRON 80324 [facility] BINDING 6 [facility] CAPACITY INC INC BLOOD 90798 [facility] COUNT 6 [facility] COMPLETE INC INC AUTO&[place] [address] [facility] FOLIC 6 [facility] [place] [address] [facility] IRON 6 [facility] INC INC CYANOCOBA 61329 [facility] S[facility] RIZWANA 6 [facility] VITAMIN INC [place] B-12 [place] [address] [facility] S[facility] FERRITIN 6 [facility] INC INC RADIOLOGI 36815 [facility] HUNT ALL C 6 MEDICAL EXAMINATI IMAGING ON KNEE 3 ASS VIEWS CULTURE 06173 [facility] SANTAM[facility] BACTERIAL 6 [facility] INC INC QUANTTATI VE COLONY COUNT URINE URNLS DIP 14887 [facility] TYSON 6 PHYSICIAN LIZBETH STICK/TAB S GROUP LET RGNT NON-AUTO W/O MICRSCP REMOVAL 01276 [facility] TYSON NON-BIODE 6 PHYSICIAN LIZBETH GRADABLE S GROUP DRUG DELIVERY IMPLANT SKIN TEST 49218 [facility] FRYMAN 6 PHYSICIAN EUG TUBERCULO S GROUP SIS INTRADERM AL URINE 80625 [facility] TYSON 6 PHYSICIAN LIZBETH TEST S GROUP VISUAL COLOR CMPRSN METHS ETONOGEST J7307 [facility] REL 6 PHYSICIAN LIZBETH CNTRACPT S GROUP IMPL SYS INCL IMPL & SPL INSJ 68871 [facility] NON-BIODE 6 PHYSICIAN LIZBETH GRADABLE S GROUP DRUG DELIVERY IMPLANT SMR PRIM 95306 [facility] SANTAM[facility] SRC WET 6 [facility] MOUNT INC INC NFCT AGT IAADIADOO 83184 [facility] LYNDSAY 6 PHYSICIAN STONE INFLUENZA S GROUP PA-C MARIYA IAADIADOO 94606 [facility] UMANA 6 PHYSICIAN STONE STREPTOCO S GROUP PA-C MARIYA CCUS GROUP A IADNA 73277 [facility] NEISSERIA 6 JANNETH JANNETH [facility] HOLDINGS GONORRHOE AE AMPLIFIED PROBE TQ IADNA 72609 [facility] CHLAMYDIA 6 JANNETH JANNETH [facility]INGS HOLDINGS TRACHOMAT IS AMPLIFIED PROBE TQ CONTRACEP A4267 [facility] TIVE [facility] DISTRICT SUPPLY TH DEPT HLTH DEPT CONDOM ILDA ILDA MALE EACH IADNA 86809 [facility] CHLAMYDIA [facility] TRACHOMAT ILDA ILDA IS AMPLIFIED PROBE TQ IADNA 45960 [facility] NEISSERIA 6 [facility] TH DEPT GONORRHOE ILDA ILDA AE AMPLIFIED PROBE TQ IADNA 51890 [facility] SANTAM[facility] NEISSERIA 5 [facility] INC GONORRHOE AE AMPLIFIED PROBE TQ IADNA 36904 [facility] SANTAMARIA CHLAMYDIA 5 [facility] INC TRACHOMAT IS AMPLIFIED PROBE TQ URINE 85348 [facility] MEHTA 5 PHYSICIAN LIZBETH TEST S GROUP VISUAL COLOR CMPRSN METHS FITTING 23679 CALIALYSSA BATISTA CALI LESTER SPECTACLE 4 S XCPT APHAKIA MONOFOCAL OPHTH 92004 CALIALYSSA BATISTA [facility] MEDICAL 4 XM&EVAL COMPRHNSV ESTAB PT 1/> LENS V2784 CALI LESTER CALI LESTER POLYCARBO 4 MARYAM OR EQUAL ANY INDEX PER LENS SCRATCH V2760 [facility] LESTER RESISTANT 4 COATING PER LENS FRAMES V2020 CALI LESTER CALI LESTER PURCHASES 4 1 VISN V2103 CALIALYSSA [place] CALI LESTER PLANO 4 TO+/-4.00 D SPHER 0.12-2.00 D CYL EA ANTIBODY 88044 COMBIN[facility] COMBINED CHLAMYDIA 4 PHYSICIAN PHYSICIAN S LA S LA CUL BACT 01125 COMBINED COMBINED XCPT 4 PHYSICIAN PHYSICIAN URINE S LA S LA BLOOD/STO OL AEROBIC ISOL FRAMES V2020 CALIALYSSA [place] CALI LESTER PURCHASES 3 1 VISN V2103 CALIALYSSA [place] CALI LESTER PLANO 3 TO+/-4.00 D SPHER 0.12-2.00 D CYL EA SPHERE V2100 KARELY [place] SINGLE 3 VISION PLANO +/- 4.00 PER LENS OPHTH 68948 KARELY [place] MEDICAL 3 XM&EVAL COMPRHNSV ESTAB PT 1/> DETERMINA 72546 KARELY [place] TION 3 REFRACTIV E STATE THERAPEUT 36834 [facility] ZHUON IC PX 1/> 3 [facility] AREAS INC INC EACH 15 MIN EXERCISES THERAPEUT 92687 ROS[facility] ROSALIO IC PX 1/> 3 [facility] AREAS INC INC EACH 15 MIN EXERCISES PHYSICAL 41728 [facility] ZHUON THERAPY 3 [facility] EVALUATIO INC INC N MRI ANY 13065 [place] LATOY[facility] JT LOWER 3 MEDICAL VAIBHAV EXTREM IMAGING W/O ASS CONTRAST MATRL RADIOLOGI 84870 [facility] SILVERIO C 3 [place] FARHAD EXAMINATI ORTHOPAED ON KNEE ICS PLC 1/2 VIEWS THERAPEUT 27209 ROS[facility] ZHUON IC PX 1/> 3 [facility] AREAS INC INC EACH 15 MIN EXERCISES THERAPEUT 69272 [facility] ZHUON IC PX 1/> 3 [facility] AREAS INC INC EACH 15 MIN EXERCISES APPLICATI 76577 [facility] SANTAMARIA ON 3 [facility] MODALITY INC INC 1/> AREAS HOT/COLD PACKS APPLICATI 92499 [facility] SANTAMARIA ON 3 [facility] MODALITY INC INC 1/> AREAS HOT/COLD PACKS THERAPEUT 77750 ROSALIO ROSALIO IC PX 1/> 3 [facility] ARE[facility] INC INC EACH 15 MIN EXERCISES PHYSICAL 55491 [facility] ROSALIO THERAPY 3 [facility] EVALUATIO INC INC N RADIOLOGI 86055 [facility] SILVERIO C 3 JENNIFERY FARHAD EXAMINATI ORTHOPAED ON KNEE IC 1/2 VIEWS MRI ANY 68485 [place] [facility] JT LOWER 2 MEDICAL VAIBHAV EXTREM IMAGING W/O ASS CONTRAST MATRL RADIOLOGI 59584 [facility] SANTAMARIA C 2 [facility] EXAMINATI INC INC ON KNEE 1/2 VIEWS RADEX 11255 [place] [facility] SPINE 2 MEDICAL VAIBHAV SCOLIOS IMAGING STUDY ASS W/SUPINE & ERECT STUDY IADNA 54412 [facility] SANTAMARIA CHLAMYDIA 2 [facility] CENTER TRACHOMAT IS AMPLIFIED PROBE TQ IADNA 50553 [facility]AL[facility] SANTAMARIA NEISSERIA 2 [facility] CENTER GONORRHOE AE AMPLIFIED PROBE TQ URINE 23941 [facility] SANTAMARIA 1 [facility] TEST [facility] CENTER VISUAL COLOR CMPRSN METHS CONTRACEP S4993 [facility] SANTAMARIA TIVE 1 [facility] CONTROL MCV4 23004 [facility] SANTAMARIA MENACWY 1 [facility] CONJ VACC CENTER CENTER GRPS ACYW-135 IM USE IM ADM 12250 [facility] SANTAMARIA PRQ ID 1 [facility] SUBQ/IM CENTER CENTER NJXS 1 VACCINE RADEX 39587 [place] LATOY[place] SPINE 1 MEDICAL VAIBHAV LUMBOSACR IMAGING AL ASS MINIMUM 4 VIEWS URINE 56603 [facility] SANTAMARIA 1 [facility] CENTER VISUAL COLOR CMPRSN METHS CONTRACEP S4993 ROSAL[facility] SANTAMARIA TIVE 1 [facility] CENTER CONTROL CONTRACEP A4267 [facility]IO SANTAMARIA TIVE 1 [facility] CENTER CONDOM MALE EACH OPHTH 77625 JOLLY SCIFRES MEDICAL 1 VISION ANG XM&EVAL COMPRE NEW PT 1/> VST FRAMES V2020 JOLLY FRANCISCOFRES PURCHASES 1 VISION ANG FITTING 57264 JOLLY SCIFRES SPECTACLE 1 VISION ANG S XCPT APHAKIA MONOFOCAL SPHERE V2100 JOLLY SCIFRES SINGLE 1 VISION ANG VISION PLANO +/- 4.00 PER LENS URNLS DIP 13970 SIMEON SIMEON 1 DON DON STICK/TAB LET RGNT NON-AUTO W/O MICRSCP URNLS DIP 74693 [facility] 0 [facility] STICK/TAB INC INC LET REAGENT AUTO MICROSCOP Y URINE 21648 [facility] SANTAMARIA 0 [facility] TEST INC INC VISUAL COLOR CMPRSN METHS RADIOLOGI 48668 [facility] LATOYA, C 8 MEDICAL JORGE EXAMINATI IMAGING ON KNEE ASSOCIATE 1/2 VIEWS S RADIOLOGI 29700 [facility] LAT[facility] C 8 MEDICAL JORGE EXAMINATI IMAGING ON KNEE 3 ASSOCIATE VIEWS S RADIOLOGI 20494 [facility] KACEY, C EXAM 8 MEDICAL FRANKIE P CHEST 2 IMAGING VIEWS ASSOCIATE FRONTAL&L S ATERAL IM ADM 59808 [facility]/CO ROSALIO PRQ ID 8 HEALTH CO HEALTH SUBQ/[facility] NJXS 1 BANK ACCT VACCINE RADEX 61746 CAILIN SIMEON FINGR 8 DON R DON R MINIMUM 2 VIEWS Encounters Encounter Start End Date Code Location Performer Type Date OFFICE 86763 JAKE JAKE OUTPATIEN 7 7 T VISIT 15 MINUTES OFFICE 58557 JAKE JAKE OUTPATIEN 7 7 T NEW 30 MINUTES OFFICE 01139 [facility] STONE OUTPATIEN 7 7 PHYSICIAN T VISIT S GROUP 25 MINUTES OFFICE 38602 [facility] MEHTA OUTPATIEN 6 6 PHYSICIAN T VISIT S GROUP 15 MINUTES OFFICE 38411 [facility] STONE MARIYA OUTPATIEN 6 6 PHYSICIAN T VISIT 5 S GROUP MINUTES HOSPITAL [facility] - 6 6 [facility] OUTPATIEN INC T OFFICE 60525 [facility] OUTPATIEN 6 6 PHYSICIAN T VISIT S GROUP 15 MINUTES HOSPITAL ROSALIO - 6 6 [facility] OUTPATIEN INC T OFFICE 51829 [facility] MEHTA OUTPATIEN 6 6 PHYSICIAN LIZBETH T VISIT S GROUP 15 MINUTES HOSPITAL ROSALIO - 6 6 [facility] OUTPATIEN INC T OFFICE 38593 [facility] LYNDSAY OUTPATIEN 6 6 PHYSICIAN STONE T VISIT S GROUP PA-C MARIYA 15 MINUTES OFFICE 29723 [facility] UMANA OUTPATIEN 6 6 PHYSICIAN STONE T NEW 30 S GROUP PA-C MARIYA MINUTES OFFICE 03944 [facility] 6 [facility] T VISIT [facility] ROSALIO - 5 5 [facility] OUTPATIEN INC T PERIODIC 59163 [facility] TYSON PREVENTIV 5 5 PHYSICIAN LIZBETH E MED EST S GROUP PATIENT 18-39 YRS OFFICE 13282 JESSICA BOND 5 5 LEONEL LEONEL T VISIT 15 MINUTES OFFICE 32150 [facility] RODRIGUEZ OUTPATIEN [address] MINUTES OFFICE 96803 SOPHIA BOND 5 5 MEDICAL COLE T VISIT SERV 15 FOUNDATIO MINUTES N OFFICE 58292 JESSICA BOND 5 5 LEONEL LEONEL T VISIT 15 MINUTES OFFICE 08096 JESSICA BOND 5 5 LEONEL LEONEL T VISIT 15 MINUTES OFFICE 84888 [facility]OP[facility] PATTERSONPATILUIS 5 5 MEDICAL COLE T VISIT SERV 15 FOUNDATIO MINUTES N OFFICE 74241 JESSICA BOND 4 4 LEONEL LEONEL T VISIT 15 MINUTES OFFICE 43099 [facility] BOND 4 4 LIZBETH LIZBETH T VISIT 15 MINUTES INITIAL 41175 [facility] MEHTA PREVENTIV 4 4 LIZBETH LIZBETH E MEDICINE NEW PT AGE 12-17 YR OFFICE 33339 JESSICA BOND 4 4 LEONEL LEONEL T VISIT 15 MINUTES OFFICE 12402 ROSALIO SANTAMARIA OUTESTELLE 3 3 [facility] HIGH T VISIT 5 [facility] MINUTES [facility] HEAL OFFICE 28773 ARNOLD ARNOLD OUTPATIEN 3 3 LEONEL LEONEL T VISIT 15 MINUTES [facility] 3 [facility] T OFFICE 85296 JESSICA LOPEZ OUTPATIEN 3 3 LEONEL LEONEL T VISIT 15 MINUTES [facility] - [facility] 3 [facility] T OFFICE 12921 [facility] OUTPAT[facility] 3 3 [place] [facility] T VISIT ORTHOPAED 15 [facility] MINUTES OFFICE 59272 JESSICA LOPEZ OUTPATIEN 3 3 LEONEL LEONEL T VISIT 15 MINUTES EMERGENCY 76310 GHAZALA ALBERTO 3 3 EMERGENCY [facility] SERVICES T VISIT HIGH/URGE NT SEVERITY OFFICE 32651 JESSICA LOPEZ OUTPATIEN 3 3 LEONEL LEONEL T VISIT 15 MINUTES OFFICE 99520 JESSICA LOPEZ OUTPATIEN 3 3 LEONEL LEONEL T VISIT 15 MINUTES OFFICE 98486 [facility] OUTPATIEN 3 3 [place] [facility] T VISIT ORTHOPAED 15 [facility] MINUTES OFFICE 19914 JESSICA LOPEZ OUTPATIEN 3 3 LEONEL LEONEL T VISIT 15 MINUTES [facility] - 3 3 [facility] T OFFICE 90646 [facility] OUTPATIEN 3 3 [place] FAR[facility] T VISIT ORTHOPAED 15 IC MINUTES OFFICE 59095 [facility] [place] 2 2 [place] [facility] VISIT ORTHOPAED 15 [facility] MINUTES [facility] - 2 2 [facility] T OFFICE 29879 [facility] CONSULTAT 2 2 [place] [facility] I[place] ORTHOPAED NEW/ESTAB ICS PLC PATIENT 40 MIN OFFICE 66811 [facility] PETCasimiro OUTPATIEN 2 2 PHYSICIAN JAM T VISIT S GROUP 10 MINUTES HOSPITAL [facility] - 2 2 [facility] T OFFICE 94260 [facility] PETTEY OUTPATIEN 2 2 PHYSICIAN JAM T NEW 20 S GROUP MINUTES OFFICE 53743 JESSICA LOPEZ OUTPATIEN 2 2 LEONEL LEONEL T VISIT 15 MINUTES OFFICE 45203 JESSICA LOPEZ OUTPATIEN 2 2 LEONEL LEONEL T VISIT 15 MINUTES OFFICE 57096 JESSICA LOPEZ OUTPATIEN 2 2 LEONEL LEONEL T VISIT 15 MINUTES [facility] - [facility] 2 [facility] T OFFICE 32598 JESSICA LOPEZ OUTPATIEN 2 2 LEONEL LEONEL T VISIT 40 MINUTES OFFICE 07216 ROSALIO ROSALIO OUTPATIEN 2 2 [facility] 10 MINUTES OFFICE 41712 JESSICA JESSICA OUTPATIEN 2 2 LEONEL LEONEL T NEW 30 MINUTES OFFICE 53258 ROSALIO ZHUON OUTPATIEN 1 1 [facility] 25 MINUTES OFFICE 79845 CAILIN SIMEON OUTPATIEN 1 1 DON DON T VISIT 15 MINUTES OFFICE 97013 ROSALIO ROSALIO OUTPATIEN 1 1 [facility] 10 MINUTES EMERGENCY 34844 GHAZALA MAYORGA 1 1 EMERGENCY III NGUYỄN DEPARTMEN SERVICES T VISIT HIGH/URGE NT SEVERITY EMERGENCY 44803 [facility] 1 1 [facility] T VISIT LOW/MODER SEVERITY [facility]OSP[facility] - [facility] T OFFICE 09333 ROSALIO ROSALIO OUTPATIEN 1 1 [facility] 25 MINUTES OFFICE 81063 ROSALIO ROSALIO OUTPATIEN 1 1 [facility] 25 MINUTES PERIODIC 75553 CAILIN SIMEON PREVENTIV 1 1 DON DON E MED EST PATIENT 12-17YRS OFFICE 74522 CAILIN CLARKHENS OUTPATIEN 1 1 DON DON T VISIT 15 MINUTES OFFICE [id number] [facility] OUTPATIEN 1 1 [facility] 10 MINUTES OFFICE 35503 [facility] OUTPATIEN 0 0 [facility] 10 MINUTES OFFICE 41703 [facility] OUTPATIEN 0 0 DON DON T VISIT 15 MINUTES PERIODIC 47760 CAILIN SIMEON, PREVENTIV 0 0 DON R DON R E MED EST PATIENT 12-17YRS [facility] T EMERGENCY [id number] [facility] 0 0 [facility] DEPART[facility] T VISIT LOW/MODER SEVERITY EMERGENCY 16746 GHAZALA CROFT, 0 0 EMERGENCY [facility] T VISIT HIGH/URGE ASSOCIATE NT S SEVERITY OFFICE 06381 [facility] SIME[facility] OUTPATIEN 0 0 DON R DON R T VISIT 15 MINUTES OFFICE 48271 [facility] OUTPATIEN 0 0 DON R DON R T VISIT 15 MINUTES OFFICE 28618 [facility] OUTPATIEN 9 9 DON R DON R T VISIT 15 MINUTES PERIODIC 16716 CAILIN SIMEON, PREVENTIV 9 9 DON R DON R E MED EST PATIENT 5-11YRS EMERGENCY 26012 [facility] 8 8 [facility] DEPARTMEN INC T VISIT LOW/MODER SEVERITY [facility]OSP[facility] - 8 8 [facility] T OFFICE 10528 [facility] OUTPATIEN 8 8 HEALTH CO HE[facility] T VISIT [facility] 10 BANK ACCT MINUTES OFFICE 31097 CAILIN SIMEON OUTPATIEN 8 8 DON R DON R T VISIT 15 MINUTES OFFICE 79950 [facility]/CO ROSALIO VARUN [address] MINUTES BANK ACCT PERIODIC 94095 CAILIN SIMEON PREVENTIV 8 8 DON R DON R E MED EST PATIENT 5-11YRS OFFICE 04928 CAILIN SIMEON OUTPATIEN 8 8 DON R DON R T VISIT 15 MINUTES
--- OUTSIDE RECORDS SUMMARY | 2017-01-06 19:15 | External Medical Summary Rpt | CCD ---
Author Author , SHARLA Mckeon SHARLA Address Unknown Phone [email or web address] Care Team Providers Care Tire Setter Name Role Phone JESSICA LEONEL, JESSICA Unavailable Unavailable LEONEL ARNMARIELY LEONEL, ARNOLD Unavailable Unavailable LEONEL TAY TER, TAY TER Unavailable Unavailable HUNT ALL, HUNT ALL Unavailable Unavailable [facility] Unavailable Unavailable [facility], [facility] MEHTA, MEHTA Unavailable Unavailable MEHTA LIZBETH, MEHTA Unavailable Unavailable LIZBETH MEHTA LIZBETH, MEHTA Unavailable Unavailable LIZBETH [facility] Unavailable [facility]available [facility] LATOYA VAIBHAV, Unavailable Unavailable LATOYA VAIBHAV LATOYABLAISEJORGE, Unavailable Unavailable LATOYA, JORGE [facility], Unavailable Unavailable [facility] LYNDSAY DIMAS PA-C Unavailable Unavailable LYNDSAY MERAZ PA-C [facility] [place] [facility] [place] [facility] [place] [facility] [place] FRYMAN EUG, FRYMAN Unavailable Unavailable REBECCA GRAY, Unavailable Unavailable REBECCA CROFT [facility] Unavailable Unavailable [facility], [facility] Unavailable Unavailable [facility], [facility] Unavailable Unavailable [facility] Unavailable Unavailable [facility] Unavailable Unavailable [facility], [facility] Unavailable Unavailable [facility], [facility] Unavailable Unavailable [facility], [facility] Unavailable Unavailable [facility], [facility] CALI LESTER, CALI LESTER Unavailable Unavailable KARELY LESTER, CALI LESTER Unavailable Unavailable [facility], Unavailable Unavailable [facility] SHIVA SORIANO Unavailable Unavailable [facility] Un[facility] Unavailable Unavailable [facility], [facility] Unavailable Unavailable SERVICES, [facility] FRANKIE ERAZO, Unavailable Unavailable KACEY, [...] JAKE Unavailable Unavailable JAKE, JAKE Unavailable Unavailable [facility] Unavailable Unavailable [facility] Unavailable Unavailable [facility], [facility] ILDA WEHRMAN III NGUYỄN, Unavailable Unavailable WEHRMAN III NGUYỄN SILVERIO FARHAD, SILVERIO Unavailable Unavailable FARHAD Purpose Continuity of Care Document - 04-29-2007 through 2016 Problems Code Diagnosis DOS Provider Status E668 OTHER 11-21-2016 JAKE OBESITY N760 ACUTE 11-21-2016 JAKE VAGINITIS R1031 RIGHT LOWER 11-21-2016 JAKE QUADRANT PAIN R350 FREQUENCY 11-06-2016 JAKE OF MICTURITION R351 NOCTURIA 11-06-2016 JAKE T83354 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-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 RTN W/O ABNORMAL FIND Z113 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-06-2016 JAEK SCREEN INFECTIONS SEXL MODE TRANSMISSN Z118 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-06-2016 JAKE SCREEN OTHER INFECTIOUS & PARASITIC DZ B84431 MIGRAINE 06-20-2016 [facility] W/O AURA PHYSICIANS NOT INTRACT GROUP W/O STAT MIGRAIN Z7251 HIGH RISK 03-14-2016 [facility] HETEROSEXUA PHYSICIANS L BEHAVIOR GROUP H5213 MYOPIA 02-10-2016 SCIFRES ANG BILATERAL R5383 OTHER 01-19-2016 [facility] FATIGUE PHYSICIANS GROUP U78441 PAIN IN 12-28-2015 [place] [facility] B7770VF UNS INJURY 12-28-2015 [place] RT LOWER MEDICAL LEG INITIAL IMAGING ASS ENCOUNTER N390 URINARY 11-14-2015 [facility] TRACT PHYSICIANS INFECTION GROUP SITE NOT SPECIFIED Z308 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-14-2015 [facility] FOR OTHER PHYSICIANS CONTRACEPTI GROUP VE MANAGEMENT Z111 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-07-2015 [facility] SCREENING PHYSICIANS FOR GROUP RESPIRATORY TUBERCULOSI S L58599 ENCOUNTER 10-19-2015 [facility] INITIAL PHYSICIANS PRESCRIPTIO GROUP N INJECT CONTRACEPT R102 PELVIC AND 09-15-2015 [facility] PERINEAL PHYSICIANS PAIN GROUP B9689 OTH SPEC 09-01-2015 [facility] BACTERIAL PHYSICIANS AGNT CAUSE GROUP DZ CLASSIFIED ELSW N898 OTHER 09-01-2015 [facility] SPECIFIED PHYSICIANS NONINFLAMMA GROUP TORY DISORDERS VAGINA J020 STREPTOCOCC 08-16-2015 [facility] AL PHYSICIANS PHARYNGITIS GROUP R509 FEVER 08-16-2015 [facility] UNSPECIFIED PHYSICIANS GROUP A5400 GONOCOCCAL 04-21-2015 [facility] INF LOWER DISTRICT GENITOURINA [facility] DEPT RY TRACT ILDA UNS A749 CHLAMYDIAL 04-21-2015 [facility] INFECTION DISTRICT UNSPECIFIED [facility] DEPT ILDA D13333 ENCOUNTER 12-23-2014 [facility] 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 EXAM PHYSICIANS GENERAL RTN GROUP W/ABNORMAL FIND 4659 ACUTE URIS 12-09-2014 ARNOLD LEONEL OF UNSPECIFIED SITE 0340 STREPTOCOCC 11-29-2014 [facility] V1359 PERSONAL 10-18-2014 [place] MEDICAL HISTORY OF [employer] [facility] MUSCULOSKEL ETAL D/O V549 UNSPECIFIED 10-18-2014 [place] [facility] 5999 UNSPECIFIED 10-12-2014 ARNOLD LEONEL DISORDER OF URETHRA&URI NARY TRACT 4619 ACUTE 08-11-2014 ARNOLD LEONEL SINUSITIS, UNSPECIFIED 79195 PAIN IN 06-07-2014 [place] [facility], SERV [facility] 3671 [...] HIGH FOR SCHOOL HEAL PULMONARY TUBERCULOSI S 95622 PATELLAR 10-13-2012 [facility] V571 OTHER 10-13-2012 [facility] THERAP[facility] INC 462 ACUTE 09-30-2012 ARNOLD LEONEL PHARYNGITIS 60039 CLOSED 09-24-2012 [place] FRACTURE MEDICAL UNSPECIFIED IMAGING ASS PART LOWER END FEMUR 26599 POST-TRAUMA 07-01-2012 [facility] EMERGENCY HEADACHE SERVICES UNSPECIFIED 87559 VARIANTS 05-26-2012 JESSICA CASTANEDA MIGRAINE NEC INTRACT MIGRAINE W/[place] [address] CLOSED 03-31-2012 [facility] [place] [facility] UNSPECIFIED PART OF FEMUR 29395 EFFUSION OF 02-21-2012 [place] [facility]G [facility] JOINT [facility] 7823 EDEMA 02-21-2012 [facility] 60840 ASTHMA 01-07-2012 JESSICA CASTANEDA UNSPECIFIED WITH STATUS ASTHMATICUS 44617 ENTHESOPATH 01-01-2012 JESSICA CASTANEDA Y OF UNSPECIFIED SITE 61714 SCOLIOSIS , 10-08-2011 [place] [facility] V700 ROUTINE 10-08-2011 JESSICA CASTANEDA GENERAL MEDICAL EXAM@HEALTH CARE FACL 2662 OTHER 08-21-2011 [facility] DEFICIENCIE C[facility] S 04274 UNSPECIFIED 08-21-2011 [facility] VULVOVAGINI TIS V2541 SURVEILLANC 08-21-2011 [facility] E PREV HEALTH PRESCRIBED CENTER CONTRACEPT PILL V016 CONTACT 07-31-2011 [facility] WITH OR HEALTH EXPOSURE TO CENTER VENEREAL DISEASES 26515 ESOPHAGEAL 07-26-2011 JESSICA CASTANEDA REFLUX 6262 EXCESSIVE 04-10-2011 [facility] OR [facility] MENSTRUATIO N 8488 OTHER 12-15-2010 [facility] SPECIFIED DON SITES OF SPRAINS AND STRAINS V2689 OTHER 11-24-2010 [facility] SPECIFIED HEALTH PROCREATIVE CENTER MANAGEMENT V069 NEED PROPH 10-12-2010 [facility] VACCINATION HEALTH W/UNSPEC CENTER COMB VACCINE 7242 LUMBAGO 09-13-2010 [facility] 6253 DYSMENORRHE 08-15-2010 [facility] 98465 REGULAR 08-11-2010 JOLLY ASTIGMATISM VISION V202 ROUTINE 08-08-2010 [facility] OR DON CHILD HEALTH CHECK 7245 UNSPECIFIED 07-10-2010 [facility] BACKACHE [facility] 8472 LUMBAR 07-10-2010 [facility] SPRAIN AND DON STRAIN 7295 PAIN IN 01-30-2010 [facility] SOFT MIDDLE TISSUES OF SCHOOL LIMB 92286 OTHER 12-28-2009 [facility] DISORDER OF DON COCCYX 8471 THORACIC 07-07-2009 [facility] 4644 CROUP 05-30-2009 SIMEONINDIRA PERSON R 1330 SCABIES 12-13-2008 SIMEONINDIRA PERSON R 5589 OTH&UNSPEC 12-13-2008 [facility] NONINFECTIO INDIRA R US GASTROENTER ITIS&COLITI S 53654 UNSPECIFIED 03-09-2008 [facility] ARTHROPATHY INC , LOWER LEG 20613 CHEST PAIN 12-04-2007 [place] UNSPECIFIED [facility] 9233 CONTUSION 09-15-2007 [...] ve LO 19 20 20 09 WN IA 60 17 17 34 AM 3 66 PH AR 10 MA CY MG OF TA BL CY ET NT HI AN A BU 00 03 04 30 5 00 HO Ac TA 59 -2 -2 .0 00 ME ti LB 13 9- 8- 00 04 TO ve -A 36 20 20 02 WN CE 90 17 17 20 TA 5 89 PH MD AR N- MA CA CY FF OF [...] 3- 3- 00 SI 89 HE ve IA 02 20 20 DE NS ED 20 [...] DE N ZA 11 11 11 II IA 0 PH I IN AR WI E MA LL 10 CY IA M MG OF E TA CY BL NT ET HI AN A IA 00 04 04 0 21 6 EA [...] 8- 8- 00 SI 68 HE ve IA 02 20 20 DE NS ED 20 [...] DOS Code Location Performer Comment SMR PRIM 75153 JAKE JAKE SRC WET 7 [place] NFCT AGT SMR PRIM 73322 JAKE JAKE SRC WET 7 [place] NFCT AGT URINALYSI 92192 JAKE JAKE S 7 MICROSCOP IC ONLY IADNA 57378 [facility] ER JR GONORRHOE AE AMPLIFIED PROBE TQ IADNA 85047 [facility] CHLAMYD[facility] ER JR TRACHOMAT IS AMPLIFIED PROBE TQ 1 VISN V2103 SCIFRES SCIFRES PLANO 6 ANG ANG TO+/-4.00 D SPHER 0.12-2.00 D CYL EA SCRATCH V2760 SCIFRES SCIFRES RESISTANT 6 ANG ANG COATING PER LENS LENS V2784 SCIFRES SCIFRES POLYCARBO 6 ANG ANG MARYAM OR EQUAL ANY INDEX PER LENS OPHTH 79677 SCIFRES SCIFRES MEDICAL 6 ANG ANG XM&EVAL COMPRHNSV ESTAB PT > FITTING 82616 SCIFRES SCIFRES SPECTACLE 6 ANG ANG S XCPT APHAKIA MONOFOCAL FRAMES V2020 SCIFRES SCIFRES PURCHASES 6 ANG ANG IRON 89377 [facility] BINDING 6 [facility] CAPACITY INC INC BLOOD 75292 [facility] COUNT 6 [facility] COMPLETE INC INC AUTO&[place] [address] [facility] FOLIC 6 [facility] [place] [address] [facility] S[facility] IRON 6 [facility] INC CYANOCOBA 62967 [facility] S[facility] RIZWANA 6 [facility] VITAMIN INC [place] B-12 [place] [address] [facility] S[facility] FERRITIN 6 [facility] INC RADIOLOGI 18025 [place] HUNT ALL C 6 MEDICAL EXAMINATI IMAGING ON KNEE 3 ASS VIEWS CULTURE 60984 [facility] BACTERIAL 6 [facility] INC QUANTTATI VE COLONY COUNT URINE URNLS DIP 80768 [facility] TYSON 6 PHYSICIAN LIZBETH STICK/TAB S GROUP LET RGNT NON-AUTO W/O MICRSCP REMOVAL 32351 [facility] [place]ON NON-BIODE 6 PHYSICIAN LIZBETH GRADABLE S GROUP DRUG DELIVERY IMPLANT SKIN TEST 57438 [facility] FRYMAN 6 PHYSICIAN EUG TUBERCULO S GROUP SIS INTRADERM AL URINE 07377 [facility] 6 PHYSICIAN LIZBETH TEST S GROUP VISUAL COLOR CMPRSN METHS ETONOGEST J7307 [facility] [place] REL 6 PHYSICIAN LIZBETH CNTRACPT S GROUP IMPL SYS INCL IMPL & SPL INSJ 83512 [facility] [place] NON-BIODE 6 PHYSICIAN LIZBETH GRADABLE S GROUP DRUG DELIVERY IMPLANT SMR PRIM 42420 [facility] SRC WET 6 [facility] MOUNT INC INC NFCT AGT IAADIADOO 44826 [facility] LYNDSAY 6 PHYSICIAN STONE INFLUENZA S GROUP PA-C MARIYA IAADIADOO 75309 [facility] UMANA 6 PHYSICIAN STONE STREPTOCO S GROUP PA-C MARIYA CCUS GROUP A IADNA 48064 [facility] NEISSERIA 6 JANNETH JANNET[facility] GONORRHOE AE AMPLIFIED PROBE TQ IADNA 36015 [facility] CHLAMYDIA 6 JANNETH JANNETH [facility] TRACHOMAT IS AMPLIFIED PROBE TQ CONTRACEP A4267 [facility] TIVE 6 DISTRICT DISTRICT SUPPLY TH DEPT HLTH DEPT CONDOM ILDA ILDA MALE EACH IADNA 79168 [facility] CHLAMYDIA 6 [facility] DEPT [facility] DEPT TRACHOMAT ILDA ILDA IS AMPLIFIED PROBE TQ IADNA 58906 [facility] NEISSERIA 6 [facility] DEPT TH DEPT GONORRHOE ILDA ILDA AE AMPLIFIED PROBE TQ IADNA 36587 [facility] NEISSERIA 5 [facility] INC GONORRHOE AE AMPLIFIED PROBE TQ IADNA 23982 [facility] CHLAMYDIA 5 [facility] INC INC TRACHOMAT IS AMPLIFIED PROBE TQ URINE 42823 [facility] MEHTA 5 PHYSICIAN LIZBETH TEST S GROUP VISUAL COLOR CMPRSN METHS FITTING 86333 CALIALYSSA BATISTA CALI LESTER SPECTACLE 4 S XCPT APHAKIA MONOFOCAL OPHTH 77905 CALIALYSSA BATISTA [facility] MEDICAL 4 XM&EVAL COMPRHNSV ESTAB PT 1/> LENS V2784 CALI LESTER CALI LESTER POLYCARBO 4 MARYAM OR EQUAL ANY INDEX PER LENS SCRATCH V2760 [facility] LESTER RESISTANT 4 COATING PER LENS FRAMES V2020 CALI LESTER CALI LESTER PURCHASES 4 1 VISN V2103 CALIALYSSA BATIST[facility] CALI LESTER PLANO 4 TO+/-4.00 D SPHER 0.12-2.00 D CYL EA ANTIBODY 20994 [facility] COMBINED CHLAMYDIA 4 PHYSICIAN PHYSICIAN S LA S LA CUL BACT 52114 COMBINED COMBINED XCPT 4 PHYSICIAN PHYSICIAN URINE S LA S LA BLOOD/STO OL AEROBIC ISOL FRAMES V2020 CALIALYSSA [facility] CALI LESTER PURCHASES 3 1 VISN V2103 CALIALYSSA [facility] CALI LESTER PLANO 3 TO+/-4.00 D SPHER 0.12-2.00 D CYL EA SPHERE V2100 KARELY [facility] SINGLE 3 VISION PLANO +/- 4.00 PER LENS OPHTH 85000 KARELY [facility] MEDICAL 3 XM&EVAL COMPRHNSV ESTAB PT 1/> DETERMINA 91927 KARELY [facility] TION 3 REFRACTIV E STATE THERAPEUT 24828 [facility] ZHUON IC PX 1/> 3 [facility] AREAS INC INC EACH 15 MIN EXERCISES THERAPEUT 30104 [facility] ROSALIO IC PX 1/> 3 [facility] AREAS INC INC EACH 15 MIN EXERCISES PHYSICAL 86933 [facility] ZHUON THERAPY 3 [facility] EVALUATIO INC INC N MRI ANY 76108 [place] LATOY[facility] JT LOWER 3 MEDICAL VAIBHAV EXTREM IMAGING W/O ASS CONTRAST MATRL RADIOLOGI 52495 [facility] SILVER[facility] C 3 [place] FARHAD EXAMINATI ORTHOPAED ON KNEE ICS PLC 1/2 VIEWS THERAPEUT 66901 [facility] ZHUON IC PX 1/> 3 [facility] AREAS INC INC EACH 15 MIN EXERCISES THERAPEUT 25287 [facility] ZHUON IC PX 1/> 3 [facility] AREAS INC INC EACH 15 MIN EXERCISES APPLICATI 91251 [facility] SANTAMARIA ON 3 [facility] MODALITY INC INC 1/> AREAS HOT/COLD PACKS APPLICATI 27067 [facility] SANTAMARIA ON 3 [facility] MODALITY INC INC 1/> AREAS HOT/COLD PACKS THERAPEUT 99681 [facility] ROSALIO IC PX 1/> 3 [facility] INC INC EACH 15 MIN EXERCISES PHYSICAL 74627 [facility] ROSALIO THERAPY 3 [facility] EVALUATIO INC INC N RADIOLOGI 61092 [facility] SILVERIO C 3 JENNIFERY FARHAD EXAMINATI ORTHOPAED ON KNEE IC 1/2 VIEWS MRI ANY 52363 [place] LATOY[facility] JT LOWER 2 MEDICAL VAIBHAV EXTREM IMAGING W/O ASS CONTRAST MATRL RADIOLOGI 74352 [facility] SANTAMARIA C 2 [facility] EXAMINATI INC INC ON KNEE 1/2 VIEWS RADEX 39564 [place] LAT[facility] SPINE 2 MEDICAL VAIBHAV SCOLIOS IMAGING STUDY ASS W/SUPINE & ERECT STUDY IADNA 22270 [facility] SANTAMARIA CHLAMYDIA 2 [facility] CENTER TRACHOMAT IS AMPLIFIED PROBE TQ IADNA 28017 [facility] SANTAMARIA NEISSERIA 2 [facility] CENTER GONORRHOE AE AMPLIFIED PROBE TQ URINE 82969 [facility] SANTAMARIA 1 [facility] TEST [facility] CENTER VISUAL COLOR CMPRSN METHS CONTRACEP S4993 [facility] SANTAMARIA TIVE 1 ID Instinctiv ID HEALTH PILLS FOR RESCUE CENTER CONTROL MCV4 30197 [facility] SANTAMARIA MENACWY 1 [facility] CONJ VACC [facility] CENTER GRPS ACYW-135 IM USE IM ADM 47447 [facility] SANTAMARIA PRQ ID 1 [facility] SUBQ/IM CENTER CENTER NJXS 1 VACCINE RADEX 63202 [place] LATOYA SPINE 1 MEDICAL VAIBHAV LUMBOSACR IMAGING AL ASS MINIMUM 4 VIEWS URINE 35278 [facility] SANTAMARIA 1 [facility] CENTER VISUAL COLOR CMPRSN METHS CONTRACEP S4993 [facility] SANTAMARIA TIVE 1 ID Instinctiv ID HEALTH PILLS FOR CENTER CENTER CONTROL CONTRACEP A4267 [facility] SANTAMARIA TIVE 1 ID Instinctiv ID HEALTH SUPPLY CENTER CENTER CONDOM MALE EACH OPHTH 75657 JOLLY SCIFRES MEDICAL 1 VISION ANG XM&EVAL COMPRE NEW PT 1/> VST FRAMES V2020 JOLLY FRANCISCOFRES PURCHASES 1 VISION ANG FITTING 81155 JO[facility] SCIFRES SPECTACLE 1 VISION ANG S XCPT APHAKIA MONOFOCAL SPHERE V2100 JOLLY SCIFRES SINGLE 1 VISION ANG VISION PLANO +/- 4.00 PER LENS URNLS DIP 85825 [facility] SIMEON 1 DON DON STICK/TAB LET RGNT NON-AUTO W/O MICRSCP URNLS DIP 92575 [facility] 0 [facility] STICK/TAB INC INC LET REAGENT AUTO MICROSCOP Y URINE 95902 [facility] SANTAMARIA 0 [facility] TEST INC INC VISUAL COLOR CMPRSN METHS RADIOLOGI 55465 [facility] LATOYA, C 8 MEDICAL JORGE EXAMINATI IMAGING ON KNEE ASSOCIATE 1/2 VIEWS S RADIOLOGI 20321 [facility] C 8 MEDICAL JORGE EXAMINATI IMAGING ON KNEE 3 ASSOCIATE VIEWS S RADIOLOGI 39363 [facility] KACEY, C EXAM 8 MEDICAL FRANKIE P CHEST 2 IMAGING VIEWS ASSOCIATE FRONTAL&L S ATERAL IM ADM 55221 [facility]/CO [facility] PRQ ID 8 HEALTH CO HEALTH SUBQ/[facility] NJXS 1 BANK ACCT VACCINE RADEX 74324 CAILIN SIMEON FINGR 8 DON R DON R MINIMUM 2 VIEWS Encounters Encounter Start End Date Code Location Performer Type Date OFFICE 81297 JAKE JAKE OUTPATIEN 7 7 T VISIT 15 MINUTES OFFICE 17352 JAKE JAKE OUTPATIEN 7 7 T NEW 30 MINUTES OFFICE 09980 [facility] STONE OUTPATIEN 7 7 PHYSICIAN T VISIT S GROUP 25 MINUTES OFFICE 94317 [facility] MEHTA OUTPATIEN 6 6 PHYSICIAN T VISIT S GROUP 15 MINUTES OFFICE 97980 [facility] STONE MARIYA OUTPATIEN 6 6 PHYSICIAN T VISIT 5 S GROUP MINUTES HOSPITAL [facility] - 6 6 [facility] OUTPATIEN INC T OFFICE 58173 [facility] OUTPATIEN 6 6 PHYSICIAN T VISIT S GROUP 15 MINUTES HOSPITAL ROSALIO - 6 6 [facility] OUTPATIEN INC T OFFICE 43400 [facility] MEHTA OUTPATIEN 6 6 PHYSICIAN LIZBETH T VISIT S GROUP 15 MINUTES HOSPITAL ROASLIO - 6 6 [facility] OUTPATIEN INC T OFFICE 74769 [facility] LYNDSAY OUTPATIEN 6 6 PHYSICIAN STONE T VISIT S GROUP PA-C MARIYA 15 MINUTES OFFICE 42226 [facility] UMANA OUTPATIEN 6 6 PHYSICIAN STONE T NEW 30 S GROUP PA-C MARIYA MINUTES OFFICE 87075 [facility] 6 6 [facility] T VISIT [facility] DEPT [facility] DEPT 10 [facility] - 5 5 [facility] OUTPATIEN INC T PERIODIC 58826 [facility] TYSON PREVENTIV 5 5 PHYSICIAN LIZBETH E MED EST S GROUP PATIENT 18-39 YRS OFFICE 58885 JESSICA BOND 5 5 LEONEL LEONEL T VISIT 15 MINUTES OFFICE 87613 [facility] RODRIGUEZ OUTPATIEN [address] MINUTES OFFICE 34916 SOP[facility] BOND 5 5 MEDICAL COLE T VISIT SERV 15 FOUNDATIO MINUTES N OFFICE 00121 JESSICA BOND 5 5 LEONEL LEONEL T VISIT 15 MINUTES OFFICE 34830 JESSICA BOND 5 5 LEONEL LENOEL T VISIT 15 MINUTES OFFICE 95254 [facility] PATTERSONPATILUIS 5 5 MEDICAL COLE T VISIT SERV 15 FOUNDATIO MINUTES N OFFICE 05322 JESSICA BOND 4 4 LEONEL LEONEL T VISIT 15 MINUTES OFFICE 14782 [facility] BOND 4 4 LIZBETH LIZBETH T VISIT 15 MINUTES INITIAL 42479 [facility] MEHTA PREVENTIV 4 4 LIZBETH LIZBETH E MEDICINE NEW PT AGE 12-17 YR OFFICE 60393 JESSICA BOND 4 4 LEONEL LEONEL T VISIT 15 MINUTES OFFICE 03109 [facility] SANTAMARIA OUTESTELLE 3 3 [facility] H[facility] HIGH T VISIT 5 [facility] MINUTES [facility] OFF[facility] 20591 ARNOLD ARNOLD OUTPATIEN 3 3 LEONEL LEONEL T VISIT 15 MINUTES HOSPITAL [facility] - 3 3 [facility] OUTPATIEN INC T OFFICE 04176 JESSICA LOPEZ OUTPATIEN 3 3 LEONEL LEONEL T VISIT 15 MINUTES HOSPITAL ROSALIO - 3 3 [facility] OUTPATIEN INC T OFFICE 73085 [facility] OUTPATIEN 3 3 [place] F[place] T VISIT ORTHOPAED 15 [facility] MINUTES OFFICE 05128 JESSICA LOPEZ OUTPATIEN 3 3 LEONEL LEONEL T VISIT 15 MINUTES EMERGENCY 49307 GHAZALA ALBERTO 3 3 EMERGENCY [facility] T VISIT HIGH/URGE NT SEVERITY OFFICE 09025 JESSICA LOPEZ OUTPATIEN 3 3 LEONEL LEONEL T VISIT 15 MINUTES OFFICE 49658 JESSICA LOPEZ OUTPATIEN 3 3 LEONEL LEONEL T VISIT 15 MINUTES OFFICE 55255 [facility] OUTPATIEN 3 3 [place] T VISIT ORTHOPAED 15 [facility] MINUTES OFFICE 45202 JESSICA LOPEZ OUTPATIEN 3 3 LEONEL LEONEL T VISIT 15 MINUTES [facility] T OFFICE 77279 [facility] 3 3 [place] [facility] T VISIT ORTHOPAED 15 IC MINUTES OFFICE 13229 [facility] [place] [place] [facility] [facility]THOPAED 15 [facility] MINUTES [facility] - [facility] 2 [facility] T OFFICE 17328 [facility] [place] 2 2 [place] [facility] I[place] ORTHOPAED NEW/ESTAB [facility] PATIENT 40 MIN OFFICE 64325 [facility] PETCasimiro OUTPATIEN 2 2 PHYSICIAN JAM T VISIT S GROUP 10 MINUTES [facility]OSP[facility] - [facility] 2 [facility] T OFFICE 11224 [facility] PETTEY OUTPATIEN 2 2 PHYSICIAN JAM T NEW 20 S GROUP MINUTES OFFICE 22022 JESSICA LOPEZ OUTPATIEN 2 2 LEONEL LEONEL T VISIT 15 MINUTES OFFICE 44155 JESSICA LOPEZ OUTPATIEN 2 2 LEONEL LEONEL T VISIT 15 MINUTES OFFICE 78982 JESSICA LOPEZ OUTPATIEN 2 2 LEONEL LEONEL T VISIT 15 MINUTES [facility] 2 [facility] T OFFICE 82292 JESSICA LOPEZ OUTPATIEN 2 2 LEONEL LEONEL T VISIT 40 MINUTES OFFICE 20068 [facility] ROSALIO OUTPATIEN 2 2 [facility] 10 MINUTES OFFICE 43450 JESSICA JESSICA OUTPATIEN 2 2 LEONEL LEONEL T NEW 30 MINUTES OFFICE 53709 [facility] ZHUON OUTPATIEN 1 1 [facility] 25 MINUTES OFFICE 72571 CAIL[facility] SIMEON OUTPATIEN 1 1 DON DON T VISIT 15 MINUTES OFFICE 00361 [facility] ROSALIO OUTPATIEN 1 1 [facility] 10 MINUTES EMERGENCY 32675 GHAZALA MAYORGA 1 1 EMERGENCY III NGUYỄN DEPARTMEN SERVICES T VISIT HIGH/URGE NT SEVERITY EMERGENCY 28828 [facility] 1 1 [facility] T VISIT LOW/MODER SEVERITY [facility]OSP[facility] - [facility] 1 [facility] T OFFICE 14791 [facility] ROSALIO OUTPATIEN 1 1 [facility] 25 MINUTES OFFICE 43504 [facility] ROSALIO OUTPATIEN 1 1 [facility] 25 MINUTES PERIODIC 84021 CAILIN SIMEON PREVENTIV 1 1 DON DON E MED EST PATIENT 12-17YRS OFFICE 37293 CAILIN CLARKHENS OUTPATIEN 1 1 DON DON T VISIT 15 MINUTES OFFICE 67400 [facility] SANTAMARIA OUTPATIEN 1 1 [facility] 10 MINUTES OFFICE 54121 [facility] SANTAMARIA OUTPATIEN 0 0 [facility] 10 MINUTES OFFICE 61989 CAILIN SIMEON OUTPATIEN 0 0 DON DON T VISIT 15 MINUTES PERIODIC 08832 CAILIN SIMEON, PREVENTIV 0 0 DON R DON R E MED EST PATIENT 12-17YRS [facility] 0 [facility] T EMERGENCY 56946 [facility] 0 0 [facility] DEPARTMEN INC T VISIT LOW/MODER SEVERITY EMERGENCY 96971 GHAZALA CROFT, 0 0 EMERGENCY [facility] SERVICES T VISIT HIGH/URGE ASSOCIATE NT S SEVERITY OFFICE 78538 CAILIN SIMEON OUTPATIEN 0 0 DON R DON R T VISIT 15 MINUTES OFFICE 91197 CAILIN SIMEON OUTPATIEN 0 0 DON R DON R T VISIT 15 MINUTES OFFICE 87199 CAILIN SIMEON OUTPATIEN 9 9 DON R DON R T VISIT 15 MINUTES PERIODIC 66340 CAILIN SIMEON, PREVENTIV 9 9 DON R DON R E MED EST PATIENT 5-11YRS EMERGENCY [id number] [facility]PART[facility] T VISIT LOW/[facility] - [facility] OUTPATI[facility] T OFFICE 07950 [facility] OUTPATIEN 8 8 [facility]ALTH [facility] T VISIT [facility] 10 BANK ACCT MINUTES OFFICE [id number] [facility] OUTPATIEN 8 8 DON R DON R T VISIT 15 MINUTES OFFICE [id number] [facility] VARUN [address] MINUTES BANK ACCT PERIODIC [id number] [facility] PREVENTIV 8 8 DON R DON R E MED EST PATIENT 5-11YRS OFFICE 12893 [facility] OUTPATIEN 8 8 DON R DON R T VISIT 15 MINUTES
--- OUTSIDE RECORDS SUMMARY | 2017-01-06 19:16 | External Medical Summary Rpt | CCD ---
Author Author , SHARLA Mckeon SHARLA Address Unknown Phone [email or web address] Immunization Name Date Rout CVX Reac Dose Comm Prov Is Faci e tion ent ider Refu lity Give sed n HPV4 07-2 62 999 Hist H149 No H149 1-20 oric (Gar 11 al dasi Info l) rmat ion - Sour ce Unsp ecif ied MCV4 07-2 147 999 Hist H149 No H149 UF 1-20 oric 11 al Info rmat ion - Sour ce Unsp ecif ied HPV4 09-0 62 999 Hist H149 No H149 4-20 oric (Gar 08 al dasi Info l) rmat ion - Sour ce Unsp ecif ied Tdap 06-0 115 999 Hist H149 No H149 , 9-20 oric Adso 08 al rbed Info rmat ion - Sour ce Unsp ecif ied HPV4 06-0 62 999 Hist H149 No H149 9-20 oric (Gar 08 al dasi Info l) rmat ion - Sour ce Unsp ecif ied DTaP 09-1 107 999 Hist H149 No H149 , UF 9-20 oric 02 al Info rmat ion - Sour ce Unsp ecif ied MMR 10-1 3 999 Hist H149 No H149 5-20 oric 01 al Info rmat ion - Sour ce Unsp ecif ied Herbie 10-1 10 999 Hist H149 No H149 o-IP 5-20 oric V 01 al Info rmat ion - Sour ce Unsp ecif ied DTaP 01-1 107 999 Hist H149 No H149 , UF 2-19 oric 99 al Info rmat ion - Sour ce Unsp ecif ied MMR 01-1 3 999 Hist H149 No H149 2-19 oric 99 al Info rmat ion - Sour ce Unsp ecif ied Herbie 10-0 2 999 Hist H149 No H149 o-OP 8-19 oric V 98 al Info rmat ion - Sour ce Unsp ecif ied Hib- 10-0 51 999 Hist H149 No H149 Hep 8-19 oric B 98 al (Com Info vax) rmat ion - Sour ce Unsp ecif ied DTaP 04-2 107 999 Hist H149 No H149 , UF 1-19 oric 98 al Info rmat ion - Sour ce Unsp ecif ied Hib, 02-1 17 999 Hist H149 No H149 UF 9- oric 98 al Info rmat ion - Sour ce Unsp ecif ied DTaP 02-1 107 999 Hist H149 No H149 , UF 9-19 oric 98 al Info rmat ion - Sour ce Unsp ecif ied Herbie 02-1 10 999 Hist H149 No H149 o-IP 9-19 oric V 98 al Info rmat ion - Sour ce Unsp ecif ied Hep 12-1 8 999 Hist H149 No H149 B, 6- oric ped/ 97 al adol Info rmat ion - Sour ce Unsp ecif ied Herbie 12- 10 999 Hist H149 No H149 o-IP 6-19 oric V 97 al Info rmat ion - Sour ce Unsp ecif ied Hib, 12-1 17 999 Hist H149 No H149 UF 6-19 oric 97 al Info rmat ion - Sour ce Unsp ecif ied DTaP 12-1 107 999 Hist H149 No H149 , UF 6- oric 97 al Info rmat ion - Sour ce Unsp ecif ied Hep 09-2 45 999 Hist ND No ND B, 5-19 oric UF 97 al Info rmat ion - Sour ce Unsp ecif ied
--- OUTSIDE RECORDS SUMMARY | 2017-01-06 19:16 | External Medical Summary Rpt | CCD ---
Author Author , SHARLA Mckeon SHARLA Address Unknown Phone [email or web address] Immunization Name Date Rout CVX Reac Dose [...] ecif ied Hep 09-2 45 999 Hist SC No SC B, 5-19 oric UF 97 al Info rmat ion - Sour ce Unsp ecif ied
--- OUTSIDE RECORDS SUMMARY | 2017-01-06 19:17 | External Medical Summary Rpt ---
Author Author SHARLA Johnston, SHARLA [employer] Organization [employer] Address Unknown Phone Unavailable Results CHLAMYDIA AND GONORRHEA TESTING Observa Value Referen Units Interpr Notes Date tion ce etation Range COLLECT A. No No No No Apr 21 OR LIT, informa informa informa informa 2016 RN tion in tion in tion in tion in 3:15 PM source source source source data data data data ETHNICI BLACK, No No No No Apr 21 TY NON-HIS informa informa informa informa 2016 PANIC tion in tion in tion in tion in 3:15 PM source source source source data data data data KIT No No No No Apr 21 EXPIRAT 6 informa informa informa informa 2016 ION tion in tion in tion in tion in 3:15 PM DATE source source source source data data data data SYMPTOM NO No No No No Apr 21 S informa informa informa informa 2016 tion in tion in tion in tion in 3:15 PM source source source source data data data data REASON SEX No No No No Apr 21 FOR PARTNER informa informa informa informa 2016 REQUEST tion in tion in tion in tion in 3:15 PM REFERRA source source source source L data data data data SPECIME URINE No No No No Apr 21 N informa informa informa informa 2016 SOURCE tion in tion in tion in tion in 3:15 PM source source source source data data data data PREGNAN NO No No No No Apr 21 T informa informa informa informa 2016 tion in tion in tion in tion in 3:15 PM source source source source data data data data CHART KDM-09- No No No No Apr 21 NUMBER [id number] informa informa informa informa 2016 tion in tion in tion in tion in 3:15 PM source source source source data data data data Chlamyd NEGATIV No No No NEGATIV Apr 21 ia E informa informa informa E 2016 trachom tion in tion in tion in RESULT= 3:15 PM atis source source source WITHIN rRNA data data data NORMAL [Presen ce] in LIMITSP Unspeci OSITIVE fied specime RESULT= n by Probe & ABNORMA target LEQUIVO GERMAINE amplifi RESULT= cation method INDETER MINATEU NSATISF ACTORY RESULT= INVALID Neisser NEGATIV No No No NEGATIV Apr 21 ia E informa informa informa E 2016 gonorrh tion in tion in tion in RESULT= 3:15 PM oeae source source source WITHIN rRNA data data data NORMAL [Presen ce] in LIMITSP Unspeci OSITIVE fied specime RESULT= n by Probe & ABNORMA target LEQUIVO GERMAINE amplifi RESULT= cation method INDETER MINATEU NSATISF ACTORY RESULT= INVALID THE APTIMA COMBO 2 ASSAY IS NOT INTENDE D FOR THE EVALUAT ION OF SUSPECT EDSEXUA L ABUSE OR FOR OTHER MEDICO- LEGAL INDICAT IONS. FOR THOSE PATIENT S FORWHOM A FALSE POSITIV E RESULT MAY HAVE ADVERSE PSYCHO- SOCIAL IMPACT, [facility] NG.\.br \This report contain s patient informa tion that must be protect ed in accorda nce with the Health Insuran ce Portabi lity and Account ability Act. CHLAMYDIA AND GONORRHEA TESTING Observa Value Referen Units Interpr Notes Date tion ce etation Range COLLECT A. No No No No Apr 21 OR LIT, informa informa informa informa 2016 RN tion in tion in tion in tion in 3:15 PM source source source source data data data data ETHNICI BLACK, No No No No Apr 21 TY NON-HIS informa informa informa informa 2016 PANIC tion in tion in tion in tion in 3:15 PM source source source source data data data data KIT No No No No Apr 21 EXPIRAT 6 informa informa informa informa 2016 ION tion in tion in tion in tion in 3:15 PM DATE source source source source data data data data SYMPTOM NO No No No No Apr 21 S informa informa informa informa 2016 tion in tion in tion in tion in 3:15 PM source source source source data data data data REASON SEX No No No No Apr 21 FOR PARTNER informa informa informa informa 2016 REQUEST tion in tion in tion in tion in 3:15 PM REFERRA source source source source L data data data data SPECIME URINE No No No No Apr 21 N informa informa informa informa 2016 SOURCE tion in tion in tion in tion in 3:15 PM source source source source data data data data PREGNAN NO No No No No Apr 21 T informa informa informa informa 2016 tion in tion in tion in tion in 3:15 PM source source source source data data data data CHART KDM-09- No No No No Apr 21 NUMBER [id number] informa informa informa informa 2016 tion in tion in tion in tion in 3:15 PM source source source source data data data data Chlamyd Pending No No No No Apr 21 ia informa informa informa informa 2016 trachom tion in tion in tion in tion in 3:15 PM atis source source source source rRNA data data data data [Presen ce] in Unspeci fied specime n by Probe & target amplifi cation method Neisser Pending No No No \.br\Apr 21 ia informa informa informa is 2016 gonorrh tion in tion in tion in report 3:15 PM oeae source source source contain rRNA data data data s [Presen patient ce] in Unspeci informa fied tion specime that n by must be Probe & target protect ed in amplifi accorda cation nce method with the Health Insuran ce Portabi lity and Account ability Act. CHLAMYDIA AND GONORRHEA TESTING Observa Value Referen Units Interpr Notes Date tion ce etation Range COLLECT NA No No No No August 19 OR informa informa informa informa 2013 tion in tion in tion in tion in 2:00 PM source source source source data data data data ETHNICI WHITE, No No No No August 19 TY NON-HIS informa informa informa informa 2013 PANIC tion in tion in tion in tion in 2:00 PM source source source source data data data data KIT 9-30-13 No No No No August 19 EXPIRAT informa informa informa informa 2013 ION tion in tion in tion in tion in 2:00 PM DATE source source source source data data data data SYMPTOM NO No No No No August 19 S informa informa informa informa 2013 tion in tion in tion in tion in 2:00 PM source source source source data data data data REASON REVISIT No No No No August 19 FOR /ANNUAL informa informa informa informa 2013 REQUEST FAMILY tion in tion in tion in tion in 2:00 PM source source source source PLANNIN data data data data G VISIT SPECIME URINE No No No No August 19 N informa informa informa informa 2013 SOURCE tion in tion in tion in tion in 2:00 PM source source source source data data data data PREGNAN NO No No No No August 19 T informa informa informa informa 2013 tion in tion in tion in tion in 2:00 PM source source source source data data data data CHART NA No No No No August 19 NUMBER informa informa informa informa 2013 tion in tion in tion in tion in 2:00 PM source source source source data data data data Chlamyd NEGATIV No No No NEGATIV August 19 ia E informa informa informa E 2013 trachom tion in tion in tion in RESULT= 2:00 PM atis source source source WITHIN rRNA data data data NORMAL [Presen ce] in LIMITSP Unspeci OSITIVE fied specime RESULT= n by Probe & ABNORMA target LEQUIVO GERMAINE amplifi RESULT= cation method INDETER MINATEU NSATISF ACTORY RESULT= INVALID Neisser NEGATIV No No No NEGATIV August 19 ia E informa informa informa E 2013 gonorrh tion in tion in tion in RESULT= 2:00 PM oeae source source source WITHIN rRNA data data data NORMAL [Presen ce] in LIMITSP Unspeci OSITIVE fied specime RESULT= n by Probe & ABNORMA target LEQUIVO GERMAINE amplifi RESULT= cation method INDETER MINATEU NSATISF ACTORY RESULT= INVALID THE APTIMA COMBO 2 ASSAY IS NOT INTENDE D FOR THE EVALUAT ION OF SUSPECT EDSEXUA L ABUSE OR FOR OTHER MEDICO- LEGAL INDICAT IONS. FOR THOSE PATIENT S FORWHOM A FALSE POSITIV E RESULT MAY HAVE ADVERSE PSYCHO- SOCIAL IMPACT, [facility] MM[facility] RET[facility] NG.\.br \This report contain s patient informa tion that must be protect ed in [place] nce with the Health Insuran ce Portabi lity and Account ability Act. CHLAMYDIA AND GONORRHEA TESTING Observa Value Referen Units Interpr Notes Date tion ce etation Range COLLECT NA No No No No August 19 OR informa informa informa informa 2013 tion in tion in tion in tion in 2:00 PM source source source source data data data data ETHNICI WHITE, No No No No August 19 TY NON-HIS informa informa informa informa 2013 PANIC tion in tion in tion in tion in 2:00 PM source source source source data data data data KIT 9-30-13 No No No No August 19 EXPIRAT informa informa informa informa 2013 ION tion in tion in tion in tion in 2:00 PM DATE source source source source data data data data SYMPTOM NO No No No No August 19 S informa informa informa informa 2013 tion in tion in tion in tion in 2:00 PM source source source source data data data data REASON REVISIT No No No No August 19 FOR /ANNUAL informa informa informa informa 2013 REQUEST FAMILY tion in tion in tion in tion in 2:00 PM source source source source PLANNIN data data data data G VISIT SPECIME URINE No No No No August 19 N informa informa informa informa 2013 SOURCE tion in tion in tion in tion in 2:00 PM source source source source data data data data PREGNAN NO No No No No August 19 T informa informa informa informa 2013 tion in tion in tion in tion in 2:00 PM source source source source data data data data CHART NA No No No No August 19 NUMBER informa informa informa informa 2013 tion in tion in tion in tion in 2:00 PM source source source source data data data data Chlamyd Pending No No No No August 19 ia informa informa informa informa 2013 trachom tion in tion in tion in tion in 2:00 PM atis source source source source rRNA data data data data [Presen ce] in Unspeci fied specime n by Probe & target amplifi cation method Neisser Pending No No No \.br\August 19 ia informa informa informa is 2013 gonorrh tion in tion in tion in report 2:00 PM oeae source source source contain rRNA data data data s [Presen patient ce] in Unspeci informa fied tion specime that n by must be Probe & target protect ed in amplifi accorda cation nce method with the Health Insuran ce Portabi lity and Account ability Act. CHLAMYDIA AND GONORRHEA TESTING Observa Value Referen Units Interpr Notes Date tion ce etation Range COLLECT M.F. 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 TEACHER tion in tion in tion in tion in 10:00 source source source source AM data data data data ETHNICI BLACK, No No No No Jun 03 TY NON-HIS informa informa informa informa 2013 PANIC tion in tion in tion in tion in 10:00 source source source source AM data data data data KIT 04-30-2 No No No No Jun 03 EXPIRAT 013 informa informa informa informa 2013 ION tion in tion in tion in tion in 10:00 DATE source source source source AM data data data data SYMPTOM NO No No No No Jun 03 S informa informa informa informa 2013 tion in tion in tion in tion in 10:00 source source source source AM data data data data REASON VOLUNTE No No No No Jun 03 FOR ER/MEDI informa informa informa informa 2013 REQUEST GERMAINE tion in tion in tion in tion in 10:00 PROBLEM source source source source AM data data data data SPECIME FEMALE No No No No Jun 03 N ENDOCER informa informa informa informa 2013 SOURCE VICAL tion in tion in tion in tion in 10:00 source source source source AM data data data data PREGNAN NO No No No No Jun 03 T informa informa informa informa 2013 tion in tion in tion in tion in 10:00 source source source source AM data data data data CHART 400-53- No No No No Jun 03 NUMBER [id number] informa informa informa informa 2013 tion in tion in tion in tion in 10:00 source source source source AM data data data data Chlamyd NEGATIV No No No NEGATIV Jun 03 ia E informa informa informa E 2013 trachom tion in tion in tion in RESULT= 10:00 atis source source source WITHIN AM rRNA data data data NORMAL [Presen ce] in LIMITSP Unspeci OSITIVE fied specime RESULT= n by Probe & ABNORMA target LEQUIVO GERMAINE amplifi RESULT= cation method INDETER MINATEU NSATISF ACTORY RESULT= INVALID Neisser NEGATIV No No No NEGATIV Jun 03 ia E informa informa informa E 2013 gonorrh tion in tion in tion in RESULT= 10:00 oeae source source source WITHIN AM rRNA data data data NORMAL [Presen ce] in LIMITSP Unspeci OSITIVE fied specime RESULT= n by Probe & ABNORMA target LEQUIVO GERMAINE amplifi RESULT= cation method INDETER MINATEU NSATISF ACTORY RESULT= INVALID THE APTIMA COMBO 2 ASSAY IS NOT INTENDE D FOR THE EVALUAT ION OF SUSPECT EDSEXUA L ABUSE OR FOR OTHER MEDICO- LEGAL INDICAT IONS. FOR THOSE PATIENT S FORWHOM A FALSE POSITIV E RESULT MAY HAVE ADVERSE PSYCHO- SOCIAL IMPACT, [facility] MM[facility] NG.\.br \This report contain s patient informa tion that must be protect ed in accorda nce with the Health Insuran ce Portabi lity and Account ability Act. CHLAMYDIA AND GONORRHEA TESTING Observa Value Referen Units Interpr Notes Date tion ce etation Range COLLECT M.F. 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 TEACHER tion in tion in tion in tion in 10:00 source source source source AM data data data data ETHNICI BLACK, No No No No Jun 03 TY NON-HIS informa informa informa informa 2013 PANIC tion in tion in tion in tion in 10:00 source source source source AM data data data data KIT 04-30-2 No No No No Jun 03 EXPIRAT 013 informa informa informa informa 2013 ION tion in tion in tion in tion in 10:00 DATE source source source source AM data data data data SYMPTOM NO No No No No Jun 03 S informa informa informa informa 2013 tion in tion in tion in tion in 10:00 source source source source AM data data data data REASON VOLUNTE No No No No Jun 03 FOR ER/MEDI informa informa informa informa 2013 REQUEST GERMAINE tion in tion in tion in tion in 10:00 PROBLEM source source source source AM data data data data SPECIME FEMALE No No No No Jun 03 N ENDOCER informa informa informa informa 2013 SOURCE VICAL tion in tion in tion in tion in 10:00 source source source source AM data data data data PREGNAN NO No No No No Jun 03 T informa informa informa informa 2013 tion in tion in tion in tion in 10:00 source source source source AM data data data data CHART 400-53- No No No No Jun 03 NUMBER [id number] informa informa informa informa 2013 tion in tion in tion in tion in 10:00 source source source source AM data data data data Chlamyd Pending No No No No Jun 03 ia informa informa informa informa 2013 trachom tion in tion in tion in tion in 10:00 atis source source source source AM rRNA data data data data [Presen ce] in Unspeci fied specime n by Probe & target amplifi cation method Neisser Pending No No No \.br\Th Jun 03 ia informa informa informa is 2013 gonorrh tion in tion in tion in report 10:00 oeae source source source contain AM rRNA data data data s [Presen patient ce] in Unspeci informa fied tion specime that n by must be Probe & target protect ed in amplifi accorda cation nce method with the Health Insuran ce Portabi lity and Account ability Act. CHLAMYDIA AND GONORRHEA TESTING Observa Value Referen Units Interpr Notes Date tion ce etation Range COLLECT NA No No No No July 30 OR informa informa informa informa 2012 tion in tion in tion in tion in 10:20 source source source source AM data data data data ETHNICI WHITE, No No No No July 30 TY NON-HIS informa informa informa informa 2012 PANIC tion in tion in tion in tion in 10:20 source source source source AM data data data data KIT 1--13 No No No No July 30 EXPIRAT informa informa informa informa 2012 ION tion in tion in tion in tion in 10:20 DATE source source source source AM data data data data SYMPTOM YES No No No No July 30 S informa informa informa informa 2012 tion in tion in tion in tion in 10:20 source source source source AM data data data data REASON VOLUNTE No No No No July 30 FOR ER/MEDI informa informa informa informa 2012 REQUEST GERMAINE tion in tion in tion in tion in 10:20 PROBLEM source source source source AM data data data data SPECIME FEMALE No No No No July 30 N ENDOCER informa informa informa informa 2012 SOURCE VICAL tion in tion in tion in tion in 10:20 source source source source AM data data data data PREGNAN NO No No No No July 30 T informa informa informa informa 2012 tion in tion in tion in tion in 10:20 source source source source AM data data data data CHART NA No No No No July 30 NUMBER informa informa informa informa 2012 tion in tion in tion in tion in 10:20 source source source source AM data data data data Chlamyd NEGATIV No No No NEGATIV July 30 ia E informa informa informa E 2012 trachom tion in tion in tion in RESULT= 10:20 atis source source source WITHIN AM rRNA data data data NORMAL [Presen ce] in LIMITSP Unspeci OSITIVE fied specime RESULT= n by Probe & ABNORMA target LEQUIVO GERMAINE amplifi RESULT= cation method INDETER MINATEU NSATISF ACTORY RESULT= INVALID Neisser NEGATIV No No No NEGATIV July 30 ia E informa informa informa E 2012 gonorrh tion in tion in tion in RESULT= 10:20 oeae source source source WITHIN AM rRNA data data data NORMAL [Presen ce] in LIMITSP Unspeci OSITIVE fied specime RESULT= n by Probe & ABNORMA target LEQUIVO GERMAINE amplifi RESULT= cation method INDETER MINATEU NSATISF ACTORY RESULT= INVALID EFFECTI VE NOVEMBE R [id number]: THE APTIMA COMBO 2 NUCLEIC ACIDAMP LIFICAT ION ASSAY IS NOT INTENDE D FOR THE EVALUAT ION OFSUSPE CTED SEXUAL ABUSE OR FOR OTHER MEDICO- LEGAL INDICAT IONS.FA LSE POSITIV E RESULTS ARE POSSIBL E.\.br\ This report contain s patient informa tion that must be protect ed in accorda nce with the Health Insuran ce Portabi lity and Account ability Act. CHLAMYDIA AND GONORRHEA TESTING Observa Value Referen Units Interpr Notes Date tion ce etation Range COLLECT NA No No No No July 30 OR informa informa informa informa 2012 tion in tion in tion in tion in 10:20 source source source source AM data data data data ETHNICI WHITE, No No No No July 30 TY NON-HIS informa informa informa informa 2012 PANIC tion in tion in tion in tion in 10:20 source source source source AM data data data data KIT 1-31-13 No No No No July 30 EXPIRAT informa informa informa informa 2012 ION tion in tion in tion in tion in 10:20 DATE source source source source AM data data data data SYMPTOM YES No No No No July 30 S informa informa informa informa 2012 tion in tion in tion in tion in 10:20 source source source source AM data data data data REASON VOLUNTE No No No No July 30 FOR ER/MEDI informa informa informa informa 2012 REQUEST GERMAINE tion in tion in tion in tion in 10:20 PROBLEM source source source source AM data data data data SPECIME FEMALE No No No No July 30 N ENDOCER informa informa informa informa 2012 SOURCE VICAL tion in tion in tion in tion in 10:20 source source source source AM data data data data PREGNAN NO No No No No July 30 T informa informa informa informa 2012 tion in tion in tion in tion in 10:20 source source source source AM data data data data CHART NA No No No No July 30 NUMBER informa informa informa informa 2012 tion in tion in tion in tion in 10:20 source source source source AM data data data data Chlamyd Pending No No No No July 30 ia informa informa informa informa 2012 trachom tion in tion in tion in tion in 10:20 atis source source source source AM rRNA data data data data [Presen ce] in Unspeci fied specime n by Probe & target amplifi cation method Neisser Pending No No No \.br\July 30 ia informa informa informa is 2012 gonorrh tion in tion in tion in report 10:20 oeae source source source contain AM rRNA data data data s [Presen patient ce] in Unspeci informa fied tion specime that n by must be Probe & target protect ed in amplifi accorda cation nce method with the Health Insuran ce Portabi lity and Account ability Act.
--- OUTSIDE RECORDS SUMMARY | 2017-01-06 19:17 | External Medical Summary Rpt ---
[...] MAY HAVE ADVERSE PSYCHO- SOCIAL IMPACT, [facility] NG.\.br \This report contain s [...] MAY HAVE ADVERSE PSYCHO- SOCIAL IMPACT, 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 NG.\.br \This report contain s patient informa tion that must be protect ed in accorda nce with the Health Insuran ce Portabi lity and Account ability Act. CHLAMYDIA AND GONORRHEA TESTING Observa Value Referen Units Interpr Notes Date tion ce etation Range COLLECT M.F. 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
--- NOTE | 2017-01-06 19:34 | [facility] Report ---
History of Present Issue Date/Time Seen by Provider 01/06/171929 Visit Reason Pt arrived:Walked Presenting Problem:PT C/O POSSIBLE YEAST INFECTION Location if Accident: Onset of symptoms date/time:/ or onset unknown for:MEDICAL HX UNKNOWN Have you (or family members/close friends) recently traveled outside the [place]? N If Yes, where/when: Have you had exposure to infectious disease within the past month? TB? Other? Specify: Source patient, RN notes reviewed Exam Limitations no limitations Comment Vaginal itching and burning X 3 days. Treated for BV, diagnosed by Dr Willson [employer] , about a month ago. Has had some vaginal discharge but no odor. Concerned about STDs as well because her partner has had other sexual encounters. ALLERGIES Coded Allergies: No Known Allergies (08/23/15) Home Medications Reported Medications No Home Medications (NO HOME MEDICATIONS) 1 EACH XX ONCE History Medical History General CAD? No Angina: No CO: No Hypertension? No Hyperlipidemia? No CHF? No DVT? No PE? No COPD? No Asthma? No Anemia? No GERD? No Gastric ulcers? No GI Bleed? No Hernia? No Thyroid Problems? No Hypothyroidism? No CVA? No Seizures? No Diabetes? No Renal Insuffiency? No UTI? No Stones? No BPH? No GB Disease: No Nephritic Syndrome? No Asplenia? No Hepatitis? No Sickle Cell Disease? No Arthritis? No Migraines? No Cataracts? No Glaucoma? No MRSA? No HIV? No TB? No Anxiety? No Depression? No Cancer? No Immunization HX DT/Tetanus 1-4 YRS Surgical Hx Previous Surgery?N Family History Family HX Diabetes Yes Hypertension Yes Cancer No TB No Social History Smoking Hx Smoker: Never Smoker Tobacco: No Alcohol Alcohol: No Review of Systems All Other Systems Reviewed and Negative Genitourinary vaginal discharge, labia tenderness. Physical Exam Vital Signs Vital Signs Date Time Temp Pulse Resp B/P Pulse O2 O2 Flow FiO2 Ox Delivery Rate 01/06 1913 99.1 96 16 118/87 98 General Appearance normal appearance, no apparent distress Respiratory Status No: respiratory distress, trachea midline, chest symmetrical. Lung Sounds bilateral: normal breath sounds, lungs clear. Cardiovascular normal exam, regular rate/rhythm, no peripheral edema, no gallop, no JVD, no murmur, no rub Extremities non-tender, normal range of motion, normal inspection, normal capillary refill Neurologic alert, normal exam, oriented x 3 Mental status normal mood/affect Medical Decision Making LABS/Meds/Orders Pt receiving controlled substance in ED? No Results/Orders Laboratory Tests 01/06/171940: Urine Color YELLOW, Urine Appearance Clear, Urine pH 7.0, Ur Specific [place] 1.025, Urine Protein TRACE H, Urine Ketones NEGATIVE, Urine Blood TRACE H, Urine Nitrate NEGATIVE, Urine Bilirubin NEGATIVE, Urine Urobilinogen 2 H, Ur Leukocyte Esterase NEGATIVE, Urine Glucose NEGATIVE 01/06/171929: Ur Chlamydia DNA (PCR) Cancelled, Urine GC DNA Probe Cancelled, HSV I IgG Ab Cancelled, HSV II IgG Cancelled 01/06/171929: Hepatitis A Ab Total Cancelled, Hep Bs Antigen Cancelled, Hep Bs Antibody Cancelled, Hep B Core Total Ab Cancelled, Hepatitis C Antibody Cancelled 01/06/171929: RPR Pending, C.trachomatis DNA ([facility]) Pending, Hepatitis A IgM Ab Pending, Hep Bs Antigen Pending, Hep B Core IgM Ab Pending, Hepatitis C Antibody Pending, HSV I IgG Ab Pending, HSV I IgM Ab Pending, HSV II IgG Pending, HSV II IgM Pending, HIV 1&2 Ag/Ab, 4th Gen Pending, N.gonorrhoeae RNA Pending Orders Procedure Date/time Status [facility] URINE DIPSTICK 01/06 1941 Complete RAPID PLASMA REAGIN 01/06 1933 Active ANTI HIV 01/06 1933 Active HEPATITIS B PROFILE 01/06 1930 Active CHLAMYDIA/GC 01/06 1930 Active Departure Departure Time of Disposition 1955 Disposition DC Home or Self Care(routine) Clinical Impression Primary Impression: Vaginitis Qualifiers: Chronicity: acute Qualified Code: N76.0 - Acute vaginitis Secondary Impressions: Exposure to sexually transmitted disease (STD) Condition STABLE Referrals LYDIA HYLTON (Family) Patient Instructions DI for Vaginal Discharge Additional Instructions Call office tomorrow morning for results of wet prep. Other labs should be available by Saturday. Discharge Counseling Counseled pt/family regarding diagnosis, medications/RX, home care, follow up needs Comments Will RX appropriate meds tomorrow morning as wet prep is pending, no pharmacies are open at this time, and patient is my regular patient at primary care. at 1958
[2017-01-06 19:44] LABS: URINE BILIRUBIN - DIPSTICK NEGATIVE (NEG); URINE BLOOD TRACE (NEG)
[2017-01-06 20:04] VITALS: BP 118/87
[2017-01-08 08:45] LABS: HSV 1 IgG, Type Spec <0.91 index (0.00-0.90); HSV 2 IgG, Type Spec 1.32 index (0.00-0.90); Rapid Plasma Reagin, Quant Non Reactive (NonRea<1:1)
[2017-01-08 10:40] LABS: HBsAg Screen Negative (Negative); Hep A Ab, IgM Negative (Negative); Hep B Core Ab, IgM Negative (Negative); Hep C Virus Ab <0.1 (0.0-0.9)
[2017-01-09 03:41] LABS: Neisseria gonorrhoeae, NAA Negative (Negative)
== END 2017-01-06 20:05 | disposition home or self-care (01) ==
LOC: UTC 19:02
PROVIDERS: Emergency Medicine
DX: N76.0 Acute vaginitis (principal); Z20.2 Contact with and (suspected) exposure to infections with a predominantly sexual mode of transmission
CPT/HCPCS: G0432

== ENCOUNTER → 2017-01-07 | Outpatient (CLI) | payer MEDICAID ==
[2017-01-09 08:50] LABS: HIV Screen 4th Generation wRfx Non Reactive (Non Reactive)
== END ==
LOC: LAB 18:24
PROVIDERS: Physician Assistant
DX: N89.8 Other specified noninflammatory disorders of vagina (principal)
CPT/HCPCS: G0432

== ENCOUNTER → 2017-02-18 | Outpatient (CLI) | payer MEDICAID ==
[2017-02-18 18:50] LABS: LYMPH # 1.7 K/mm3 (0.7-4.5); LYMPH % 48.9 % (10-50.0)
[2017-02-18 21:13] LABS: BUN 9 mg/dL (7-18)
[2017-02-18 21:15] LABS: GFR (ESTIMATED) 80 ML/MIN (59-)
== END ==
LOC: LAB 18:06
PROVIDERS: Nurse Practitioner Family
DX: R53.83 Other fatigue (principal); E55.9 Vitamin D deficiency, unspecified